=== PATIENT | male | born 1930 | race Caucasian/White ===

== ENCOUNTER 2018-06-07 10:38 | Emergency (ER) | payer MEDICARE, OTHER ==
[~2018-06-07] VITALS: Ht 185.4 cm; Wt 94.3 kg
[~2018-06-07 10:38] MED LIST: IMDUR30 MG PO; LISINOPRIL10 MG PO; LYRICA75 MG PO; METOPROLOL SUCC25 MG PO; PLAVIX75 MG PO
--- OUTSIDE RECORDS SUMMARY | 2018-06-07 10:41 | XMS REPORT | Clinical Summary ---
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 Name Role Phone George Stoner MD PCP Unavailable Allergies Comments Active Allergy Reactions Severity Noted Date Unknown reaction per patient but mentioned he was switched to a potassium sparing diuretic Bumetanide 11/22/2015 Could be the cause of his peripheral neuropathy Ciprofloxacin 11/22/2015 Fluocinolone Acetonide 04/18/2016 Wants to avoid because Cipro is suspected to be the cause of his peripheral neuropathy Levofloxacin 11/22/2015 Wants to avoid because Cipro is suspected to be the cause of his peripheral neuropathy Moxifloxacin 11/22/2015 Nystatin Rash, throat closed, chest pain Nystatin-Triamcinolone Other (See High 01/17/2016 Comments) Happened 60 years ago cannot remember reaction Penicillins 11/22/2015 Triamcinolone Medications End Date Status Medication Sig Dispensed Refills Start Date Active CYANOCOBALAMIN, VITAMIN Take 500 mcg 0 B-12, ORAL by mouth every evening. Active cholecalciferol, vitamin Take 1,000 0 D3, (VITAMIN D3) 1,000 Units by unit tablet mouth every evening. Active FOLIC Take 1 tablet 0 ACID/MULTIVIT-MIN/LUTEIN by mouth (CENTRUM SILVER ORAL) every evening. Active GLUCOSAMINE HCL/CHONDR RAINES Take 1 0 A NA (OSTEO BI-FLEX ORAL) capsule by mouth every evening. Active metoprolol succinate XL Take 12.5 mg 0 (TOPROL-XL) 25 mg 24 hr by mouth 2 tablet (two) times a day. Active aspirin (ECOTRIN) 81 MG Take 81 mg by 0 enteric coated tablet mouth every evening. Active clopidogrel (PLAVIX) 75 Take 37.5 mg 0 mg tablet by mouth daily. Active ASCORBATE Take 1 tablet 0 CALCIUM/BIOFLAVONOID by mouth (CHRISTIAN-C WITH every BIOFLAVONOIDS ORAL) evening. Active artificial Administer 1 0 tears,hypromellose, drop to both (SYSTANE GEL) 0.3 % gel eyes as needed (dry eyes). Active IMMUNE Infuse 55 0 GLOBULIN,GAMMA,IGG, Units into a (IMMUNE GLOBULIN, HUMAN,, venous IGG, IV) catheter every 28 days. Has appointments to start taking on April 15, , , "for legs" Active lisinopril Take 2.5 mg 0 (PRINIVIL,ZESTRIL) 2.5 mg by mouth tablet daily. Takes 1/2 tablet daily Active spironolactone Take 12.5 mg 0 (ALDACTONE) 25 MG tablet by mouth 2 (two) times a day. 07/16/2017 Discontinued spironolactone Take 12.5 mg 0 (ALDACTONE) 25 MG tablet by mouth daily. 07/16/2017 Discontinued lisinopril Take 1.25 mg 0 (PRINIVIL,ZESTRIL) 2.5 mg by mouth 2 tablet (two) times a day. 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 Encounters Care Team Description Date Type Specialty Regina Perez MD Chronic inflammatory demyelinating polyneuritis (HCC) (Primary Dx) 05/27/2018 Infusion Neurology Regina Perez MD Chronic inflammatory demyelinating polyneuritis (HCC) (Primary Dx) 04/29/2018 Infusion Neurology Ajay Miller MD Chronic inflammatory demyelinating polyneuritis (HCC) (Primary Dx) 04/01/2018 Infusion Neurology Maxine Thomas RN 03/11/2018 Telephone Neurology Regina Perez MD Chronic inflammatory demyelinating polyneuritis (Primary Dx) 03/04/2018 Infusion Neurology Regina Perez MD Chronic inflammatory demyelinating polyneuritis (Primary Dx) 02/04/2018 Infusion Neurology Regina Perez MD Chronic inflammatory demyelinating polyneuritis (Primary Dx) 01/07/2018 Infusion Neurology Regina Perez MD Chronic inflammatory demyelinating polyradiculoneuropathy (Primary Dx) 01/05/2018 Orders Only Neurology Regina Perez MD Chronic inflammatory demyelinating polyneuritis (Primary Dx); Chronic inflammatory demyelinating polyradiculoneuropathy 12/10/2017 Infusion Neurology Regina Perez MD Chronic inflammatory demyelinating polyradiculoneuropathy (Primary Dx); At high risk for falls 11/20/2017 Office Visit Neurology Regina Perez MD Chronic inflammatory demyelinating polyneuritis (Primary Dx); Chronic inflammatory demyelinating polyradiculoneuropathy 11/12/2017 Infusion Neurology Regina Perez MD Chronic inflammatory demyelinating polyneuritis (Primary Dx); Chronic inflammatory demyelinating polyradiculoneuropathy 10/15/2017 Infusion Neurology Regina Perez MD Chronic inflammatory demyelinating polyneuritis (Primary Dx) 09/17/2017 Infusion Neurology Regina Perez MD 09/04/2017 Telephone Neurology Regina Perez MD Chronic inflammatory demyelinating polyneuritis (Primary Dx) 08/20/2017 Infusion Neurology Regina Perez MD 08/15/2017 Telephone Neurology Regina Perez MD Canceled (Patient) 08/13/2017 Infusion Neurology Regina Perez MD Chronic inflammatory demyelinating polyneuritis (Primary Dx) 07/16/2017 Infusion Neurology Regina Perez MD Chronic inflammatory demyelinating polyneuritis (Primary Dx) 06/18/2017 Infusion Neurology after 06/06/2017 Immunizations Name Dates Previously Given Next Due Pneumococcal Conjugate 03/28/2017 13-Valent Family History Medical History Relation Name Comments Stroke Father Tuberculosis Mother Relation Name Status Comments Father Mother Social History Date Tobacco Use Types Packs/Day Years Used Quit: 195 Former Smoker Smokeless Tobacco: Never Used Alcohol Use Drinks/Week oz/Week Comments Yes very seldom Sex Assigned at Date Recorded Not on file Industry Job Start Date Occupation Not on file Not on file Not on file Travel End Travel History Travel Start No recent travel history available. Last Filed Vital Signs Time Taken Vital Sign Reading 05/27/2018 8:01 AM BELT PRESS OPERATOR Blood Pressure 125/66 05/27/2018 8:01 AM BELT PRESS OPERATOR Pulse 70 05/27/2018 8:01 AM BELT PRESS OPERATOR Temperature 36 C (96.8 F) 05/27/2018 8:01 AM BELT PRESS OPERATOR Respiratory Rate 18 05/27/2018 8:01 AM BELT PRESS OPERATOR Oxygen Saturation 99% - Inhaled Oxygen - Concentration 04/29/2018 7:17 AM BELT PRESS OPERATOR Weight 95.5 kg (210 lb 8 oz) 04/29/2018 7:17 AM BELT PRESS OPERATOR Height 188 cm (6' 2") 04/29/2018 7:17 AM BELT PRESS OPERATOR Body Mass Index 27.03 Plan of Treatment Care Team Description Date Type Specialty Regina Perez MD [address] [place] [address] [phone] 06/29/2018 Infusion Neurology 07/27/2018 Infusion Neurology Regina Perez MD [address] [place] [address] [phone] 08/11/2018 Office Visit Neurology 08/24/2018 Infusion Neurology Health Maintenance Due Date Last Done Comments SHINGLES VACCINES (1 of 1980 2) PNEUMOCOCCAL 1995 POLYSACCHARIDE VACCINE AGE 65 AND OVER INFLUENZA VACCINE 01/21/2018 PNEUMOCOCCAL-13 Completed 03/28/2017 Implants Device Identifier Shelf Expiration Date Model / Serial / Lot Implanted Type Area Manufactur er Pacemaker Defibrilator Procedures Comments Procedure Name Priority Date/Time Associated Diagnosis ESTIMATED GFR STAT 05/27/2018 7:53 AM BELT PRESS OPERATOR CREATININE LEVEL STAT 05/27/2018 Chronic inflammatory 7:53 AM BELT PRESS OPERATOR demyelinating polyneuritis (HCC) BUN LEVEL STAT 05/27/2018 Chronic inflammatory 7:53 AM BELT PRESS OPERATOR demyelinating polyneuritis (HCC) ESTIMATED GFR STAT 04/29/2018 7:34 AM BELT PRESS OPERATOR CREATININE LEVEL STAT 04/29/2018 Chronic inflammatory 7:34 AM BELT PRESS OPERATOR demyelinating polyneuritis (HCC) BUN LEVEL STAT 04/29/2018 Chronic inflammatory 7:34 AM BELT PRESS OPERATOR demyelinating polyneuritis (HCC) ESTIMATED GFR STAT 04/01/2018 8:08 AM CDT CREATININE LEVEL STAT 04/01/2018 Chronic inflammatory 8:08 AM CDT demyelinating polyneuritis (HCC) BUN LEVEL STAT 04/01/2018 Chronic inflammatory 8:08 AM CDT demyelinating polyneuritis (HCC) ESTIMATED GFR STAT 03/04/2018 7:54 AM CDT CREATININE LEVEL STAT 03/04/2018 Chronic inflammatory 7:54 AM CDT demyelinating polyneuritis BUN LEVEL STAT 03/04/2018 Chronic inflammatory 7:54 AM CDT demyelinating polyneuritis ZZESTIMATED GFR STAT 02/04/2018 8:20 AM CDT CREATININE LEVEL STAT 02/04/2018 Chronic inflammatory 8:20 AM CDT demyelinating polyneuritis BUN LEVEL STAT 02/04/2018 Chronic inflammatory 8:20 AM CDT demyelinating polyneuritis ZZESTIMATED GFR STAT 01/07/2018 7:32 AM CDT CREATININE LEVEL STAT 01/07/2018 Chronic inflammatory 7:32 AM CDT demyelinating polyneuritis BUN LEVEL STAT 01/07/2018 Chronic inflammatory 7:32 AM CDT demyelinating polyneuritis ZZESTIMATED GFR STAT 12/10/2017 7:56 AM CDT CREATININE LEVEL STAT 12/10/2017 Chronic inflammatory 7:56 AM CDT demyelinating polyneuritis Chronic inflammatory demyelinating polyradiculoneuropathy BUN LEVEL STAT 12/10/2017 Chronic inflammatory 7:56 AM CDT demyelinating polyneuritis Chronic inflammatory demyelinating polyradiculoneuropathy ZZESTIMATED GFR STAT 11/12/2017 7:31 AM CDT CREATININE LEVEL STAT 11/12/2017 Chronic inflammatory 7:31 AM CDT demyelinating polyneuritis Chronic inflammatory demyelinating polyradiculoneuropathy BUN LEVEL STAT 11/12/2017 Chronic inflammatory 7:31 AM CDT demyelinating polyneuritis Chronic inflammatory demyelinating polyradiculoneuropathy ZZESTIMATED GFR STAT 10/15/2017 8:07 AM CDT CREATININE LEVEL STAT 10/15/2017 Chronic inflammatory 8:07 AM CDT demyelinating polyneuritis Chronic inflammatory demyelinating polyradiculoneuropathy BUN LEVEL STAT 10/15/2017 Chronic inflammatory 8:07 AM CDT demyelinating polyneuritis Chronic inflammatory demyelinating polyradiculoneuropathy ZZESTIMATED GFR STAT 09/17/2017 8:30 AM CDT COMPREHENSIVE METABOLIC STAT 09/17/2017 Chronic inflammatory PANEL 8:30 AM CDT demyelinating polyneuritis ZZESTIMATED GFR STAT 08/20/2017 7:44 AM BELT PRESS OPERATOR CREATININE LEVEL STAT 08/20/2017 Chronic inflammatory 7:44 AM BELT PRESS OPERATOR demyelinating polyneuritis BUN LEVEL STAT 08/20/2017 Chronic inflammatory 7:44 AM BELT PRESS OPERATOR demyelinating polyneuritis ZZESTIMATED GFR STAT 07/16/2017 8:36 AM BELT PRESS OPERATOR CREATININE LEVEL STAT 07/16/2017 Chronic inflammatory 8:36 AM BELT PRESS OPERATOR demyelinating polyneuritis BUN LEVEL STAT 07/16/2017 Chronic inflammatory 8:36 AM BELT PRESS OPERATOR demyelinating polyneuritis ZZESTIMATED GFR STAT 06/18/2017 7:58 AM BELT PRESS OPERATOR CREATININE LEVEL STAT 06/18/2017 Chronic inflammatory 7:58 AM BELT PRESS OPERATOR demyelinating polyneuritis BUN LEVEL STAT 06/18/2017 Chronic inflammatory 7:58 AM BELT PRESS OPERATOR demyelinating polyneuritis after 06/06/2017 Results * Estimated GFR (05/27/2018 7:53 AM BELT PRESS OPERATOR) Only the most recent of 4 results within the time period is included. Estimated GFR 55 (A) mL/min/1.73 m2 [facility] Comment: HOSPITAL CatergoryUnitsInte rpretation G1 >=90 Normal or high G2 60-89Mildly decreased [id number] Mildly to moderately decreased [id number] Moderately to severely decreased G4 15-29Severely decreased G5 <15Kidney failure The eGFR was calculated using the Chronic Kidney Disease Epidemiology Collaboration (CKD-EPI) equation. Interpretation is based on recommendations of the National Kidney Foundation-Kidney Disease Outcomes Quality Initiative (NKF-KDOQI) published in 2014. Specimen Plasma specimen Performing Organization Address City/[facility] Phone Number [facility] [address] PATHOLOGY AND [facility] [address] MEDICINE [address] * BUN level (05/27/2018 7:53 AM BELT PRESS OPERATOR) Only the most recent of 12 results within the time period is included. BUN 20 8 - 23 mg/dL [facility] Specimen Plasma specimen Performing Organization Address [facility] [place] [address] PATHOLOGY [address] * Creatinine level (05/27/2018 7:53 AM BELT PRESS OPERATOR) Only the most recent of 12 results within the time period is included. Creatinine 1.18 0.70 - 1.20 mg/dL [facility] Specimen Plasma specimen Performing Organization Address [facility] [place] [address] PATHOLOGY AND GENOMIC MEDICINE [address] * Estimated GFR (02/04/2018 8:20 AM CDT) Only the most recent of 9 results within the time period is included. GFR Non Af Amer 52 (A) mL/min/1.73 m2 [facility] DEPARTMENT OF PATHOLOGY AND GENOMIC MEDICINE GFR Af Amer 63 mL/min/1.73 m2 [facility] DEPART[facility] OF Comment: PATHOLOGY AND Chronic kidney disease: <60 GENOMIC MEDICINE mL/min/1.73m2 Kidney failure: <15 mL/min/1.73m2 The estimated GFR is calculated from the IDMS-traceable Modification of Diet in Renal Disease Equation. The accuracy of the calculation is poor when the creatinine is normal. Calculated values >90 mL/min/1.73m2 are not reported. This equation has not been validated in children (<18 years), women, the elderly (>70 years), or ethnic groups other than Caucasians and Americans. Specimen Plasma specimen Performing Organization Address City/[facility] Phone Number [address] [place] [address] PATHOLOGY AND GENOMIC MEDICINE * Comprehensive metabolic panel (09/17/2017 8:30 AM CDT) Sodium 138 135 - 148 mEq/L [facility] DEPARTMENT OF PATHOLOGY AND GENOMIC MEDICINE Potassium 4.6 3.5 - 5.0 mEq/L [facility] DEPARTMENT OF PATHOLOGY AND GENOMIC MEDICINE Chloride 100 98 - 112 mEq/L [facility] DEPARTMENT OF PATHOLOGY AND GENOMIC MEDICINE CO2 23 (L) 24 - 31 mEq/L [facility] DEPARTMENT OF PATHOLOGY AND GENOMIC MEDICINE Anion gap 15 7 - 15 mEq/L [facility] DEPART[facility] OF Comment: PATHOLOGY AND Starting from September GENOMIC MEDICINE , anion gap calculation no longer incorporates potassium. Please note the change. BUN 26 (H) 8 - 23 mg/dL [facility] DEPARTMENT OF PATHOLOGY AND GENOMIC MEDICINE Creatinine 1.2 0.7 - 1.2 mg/dL [facility] DEPARTMENT OF PATHOLOGY AND GENOMIC MEDICINE Glucose 103 (H) 65 - 99 mg/dL [facility] DEPARTMENT OF PATHOLOGY AND GENOMIC MEDICINE Calcium 9.7 8.8 - 10.2 mg/dL [facility] DEPARTMENT OF PATHOLOGY AND GENOMIC MEDICINE Protein 7.5 6.3 - 8.3 g/dL [facility] DEPART[facility] OF Comment: PATHOLOGY AND GENOMIC MEDICINE 4.6-7.0 g/dL 1 week 4.4-7.6 g/dL 7 months-1year 5.1-7.3 g/dL 1-2 years5.6-7 .5 g/dL >3 years6.0-8 .0 g/dL 18-150 6.3-8.3 g/dL Albumin 3.9 3.5 - 5.0 g/dL [facility] DEPARTMENT OF PATHOLOGY AND GENOMIC MEDICINE A/G ratio 1.1 0.7 - 3.8 [facility] DEPARTMENT OF PATHOLOGY AND GENOMIC MEDICINE Alkaline phosphatase 37 (L) 40 - 129 U/L [facility] DEPARTMENT OF PATHOLOGY AND GENOMIC MEDICINE AST 34 10 - 50 U/L [facility] DEPARTMENT OF PATHOLOGY AND GENOMIC MEDICINE ALT 27 5 - 50 U/L [facility] DEPARTMENT OF PATHOLOGY AND GENOMIC MEDICINE Total bilirubin 0.8 0.0 - 1.2 mg/dL [facility] DEPARTMENT OF PATHOLOGY AND GENOMIC MEDICINE Specimen Plasma specimen Performing Organization Address City/State/Zipcode Phone Number [facility] [address] [place] [address] PATHOLOGY AND GENOMIC MEDICINE after 06/06/2017 Insurance Payer Benefit Subscriber ID Type Phone Address Plan / Group MEDICARE MEDICARE xxxxxxxxxx Medicare [place], [place] PART A AND B COMMERCIAL MISC MISC xxxxxxxxx Commercial COMMERCIAL Guarantor Name Account Relation to Date of Phone Billing Address Type Patient Erickson Coats Personal/F Self 1930 [address] [facility] [place] [address] Advance Directives Patient has advance care planning documents on file. For more information, everett delgado contact: Chato Alexis [address] [place] [address]
--- OUTSIDE RECORDS SUMMARY | 2018-06-07 10:42 | XMS REPORT | Summary of Care ---
Author Author [facility] Address Unknown Phone Unavailable Encounter [facility]) [id number] Date(s): 03/23/15 - 04/21/15 [facility] Discharge Disposition: Home Attending Physician: Georgina Gonzales MD Vital Signs No data available for this section Problem List Condition Effective Dates Status Health Status Informant Coronary artery Resolved disease(Confirmed) Hypertension(Confirm Resolved ed) Allergies, Adverse Reactions, Alerts Substance Reaction Severity Status Avelox Active Levaquin Active penicillins Active Medications No data available for this section Results No data available for this section Immunizations No data available for this section Procedures Procedure Date Related Diagnosis Body Site Stent placement Social History Social History Type Response Smoking Status Never smoker; Exposure to Tobacco Smoke None; Cigarette Smoking Last 365 Days No; Reg Smoking Cessation Counseling No Assessment and Plan No data available for this section
--- OUTSIDE RECORDS SUMMARY | 2018-06-07 10:42 | XMS REPORT | Summary of Care ---
Author Author [facility] Organization [facility] Address Unknown Phone Unavailable Encounter HQ Sadie(JOAO) [id number] Date(s): 04/21/16 - 04/22/16 [facility] [address] [place] [address]- Discharge Disposition: Home or Self Care Attending Physician: Yessica Boyd MD Admitting Physician: Yessica Boyd MD Vital Signs 1 2 3 Most recent to oldest [Reference Range]: 187.96 cm (04/22/16 3:07 AM) 187.96 cm (04/22/16 2:55 AM) Height 97.7 DegF (04/22/16 8:00 AM) 97.6 DegF (04/22/16 3:14 AM) 97.4 DegF (04/22/16 2:25 AM) Temperature Oral [96.4-99.1 DegF] 118/73 mmHg (04/22/16 8:00 AM) 137/71 mmHg (04/22/16 3:14 AM) 127/74 mmHg (04/22/16 2:25 AM) Blood Pressure [90-140/60-90 mmHg] 20 BRMIN (04/22/16 8:34 AM) 18 BRMIN (04/22/16 8:00 AM) 14 BRMIN (04/22/16 3:25 AM) Respiratory Rate [14-20 BRMIN] 86 bpm (04/22/16 8:00 AM) 64 bpm (04/22/16 3:14 AM) 80 bpm (04/21/16 10:53 PM) Peripheral Pulse Rate [60-100 bpm] 95.455 kg (04/22/16 3:07 AM) 95.455 kg (04/22/16 2:55 AM) 95.455 kg (04/21/16 10:53 PM) Weight 27.02 m2 (04/22/16 3:07 AM) 27.02 m2 (04/22/16 2:55 AM) Body Mass Index Problem List Condition Effective Dates Status Health Status Informant AICD (automatic Resolved cardioverter/defibri llator) present(Confirmed) 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 (Same as: Tylenol) Start Date: 04/22/16 Stop Date: 04/22/16 Status: Discontinued aspirin 324 mg, Route: PO, ONCE, Dosing Weight 95.455, kg, Priority: STAT, Start date: 1 23:14:00 CDT, Stop date: 04/21/16 23:14:00 CDT Start Date: 04/21/16 Stop Date: 04/22/16 Status: Completed aspirin 81 mg tablet, enteric coated 81 mg, 1 tab, Route: PO, Drug form: ECTAB, Bedtime, Dosing Weight 95.455, kg, St art date: 04/22/16 21:00:00 CDT, Duration: 30 day, Stop date: 05/21/16 21:00:00 YARN SPOOLER Notes: Do not crush or chew.(Same As: Ecotrin) Start Date: 04/22/16 Stop Date: 04/22/16 Status: Canceled cyanocobalamin 500 microgram, 1 tab, Route: PO, Drug form: TAB, Daily, Dosing Weight 95.455, kg , Start date: 04/22/16 9:00:00 CDT, Duration: 30 day, Stop date: 05/21/16 9:00:0 0 YARN SPOOLER Notes: (Same As: Vitamin B12) Start Date: 04/22/16 Stop Date: 04/22/16 Status: Discontinued docusate 100 mg, 1 cap, Route: PO, Drug form: CAP, BID, Dosing Weight 95.455, kg, PRN Con stipation, Start date: 04/22/16 2:53:00 CDT, Duration: 30 day, Stop date: 2:52:00 YARN SPOOLER Notes: (Same as: Colace) (Do Not Crush) Start Date: 04/22/16 Stop Date: 04/22/16 Status: Discontinued enoxaparin 40 mg, 0.4 mL, Route: SUB-Q, Drug form: INJ, [id number], Dosing Weight 95.455, kg, Start date: 04/22/16 9:00:00 CDT, Duration: 30 day, Stop date: 05/21/16 9:00:00 YARN SPOOLER Notes: (Same as: Lovenox) Start Date: 04/22/16 Stop Date: 04/22/16 Status: Discontinued Yuko-C 500 mg, Route: PO, Drug form: TAB, Daily, Dosing Weight 95.455, kg, Start date: 04/22/16 9:00:00 CDT, Duration: 30 day, Stop date: 05/21/16 9:00:00 YARN SPOOLER Start Date: 04/22/16 Stop Date: 04/22/16 Status: Discontinued morphine Sulfate 2 mg, 1 mL, Route: IVP, Drug form: INJ, Q4H, Dosing Weight 95.455, kg, PRN Pain Score 7-10, Start date: 04/22/16 2:53:00 CDT, Duration: 30 day, Stop date: 05/22 2:52:00 YARN SPOOLER Notes: (Same as:MORPhine Sulfate) Start Date: 04/22/16 Stop Date: 04/22/16 Status: Discontinued ondansetron 4 mg, 2 mL, Route: IVP, Drug form: INJ, Q6H, Dosing Weight 95.455, kg, PRN Nause a & Vomiting, Start date: 04/22/16 2:53:00 CDT, Duration: 30 day, Stop date: 05/22/16 2:52:00 YARN SPOOLER Notes: (Same as: Sissy) MEDICATION WASTE Product Size: 4 mgProduct Was t[place]: ___ mg Start Date: 04/22/16 Stop Date: 04/22/16 Status: Discontinued Osteo Bi-Flex Daily, bedtime, 0 Refill(s) Start Date: 04/22/16 Status: Ordered Plavix 37.5 mg, 0.5 tab, Route: PO, Drug form: TAB, Daily, Dosing Weight 95.455, kg, St art date: 04/22/16 9:00:00 CDT, Duration: 30 day, Stop date: 05/21/16 9:00:00 CS T Notes: (Same As: Plavix) Start Date: 04/22/16 Stop Date: 04/22/16 Status: Discontinued Saline Flush 0.9% 10 mL, Route: IVP, Drug Form: INJ, Dosing Weight 95.455, kg, PRN, PRN Line Flush , Start date: 04/21/16 23:14:00 CDT, Duration: 30 day, Stop date: 05/21/16 22:13 :00 YARN SPOOLER Notes: (Same as: BD Posiflush) Start Date: 04/21/16 Stop Date: 04/22/16 Status: Discontinued Saline Flush 0.9% 10 mL, Route: IVP, Drug Form: INJ, Dosing Weight 95.455, kg, PRN, PRN Line Flush , Start date: 04/21/16 23:38:00 CDT, Duration: 30 day, Stop date: 05/21/16 22:37 :00 YARN SPOOLER Notes: (Same as: BD Posiflush) Start Date: 04/21/16 Stop Date: 04/22/16 Status: Discontinued spironolactone 25 mg, 1 tab, Route: PO, Drug form: TAB, Daily, Dosing Weight 95.455, kg, Start date: 04/22/16 9:00:00 CDT, Duration: 30 day, Stop date: 05/21/16 9:00:00 YARN SPOOLER Notes: (Same As: Aldactone) Start Date: 04/22/16 Stop Date: 04/22/16 Status: Discontinued Toprol-XL 25 mg oral tablet, extended release 25 mg, 1 tab, Route: PO, Drug form: ERTAB, Daily, Start date: 04/22/16 9:00:00 C DT, Duration: 30 day, Stop date: 05/21/16 9:00:00 YARN SPOOLER Notes: (Same as: Toprol XL) Do Not Crush Start Date: 04/22/16 Stop Date: 04/22/16 Status: Discontinued Vitamin D3 1000 intl units oral tablet 1,000 IntlUnit, 1 tab, Route: PO, Drug form: TAB, Daily, Dosing Weight 95.455, k g, Start date: 04/22/16 9:00:00 CDT, Duration: 30 day, Stop date: 05/21/16 9:00: 00 YARN SPOOLER Notes: Same as : Vitamin D3 Start Date: 04/22/16 Stop Date: 04/22/16 Status: Discontinued Zocor 10 mg, 1 tab, Route: PO, Drug form: TAB, Bedtime, Dosing Weight 95.455, kg, Star t date: 04/22/16 21:00:00 CDT, Duration: 30 day, Stop date: 05/21/16 21:00:00 CS T Notes: (Same as: Zocor) Start Date: 04/22/16 Stop Date: 04/22/16 Status: Canceled Results ELECTROLYTES 1 2 3 Most recent to oldest [Reference Range]: 136 mEq/L (04/22/16 12:12 AM) Sodium Lvl [135-145 mEq/L] 4.4 mEq/L (04/22/16 12:12 AM) Potassium Lvl [3.5-5.1 mEq/L] 103 mEq/L (04/22/16 12:12 AM) Chloride Lvl [95-109 mEq/L] 23 mEq/L *LOW* (04/22/16 12:12 AM) CO2 [24-32 mEq/L] 14.4 mEq/L (04/22/16 12:12 AM) AGAP [10.0-20.0 mEq/L] CHEM PANEL 1 2 3 Most recent to oldest [Reference Range]: 1.30 mg/dL (04/22/16 10:50 AM) 1.40 mg/dL (04/22/16 12:12 AM) Creatinine Lvl [0.50-1.40 mg/dL] 49 mL/min/1.73m2 1 *NA* (04/22/16 10:50 AM) 45 mL/min/1.73m2 2 *NA* (04/22/16 12:12 AM) eGFR 29 mg/dL *HI* (04/22/16 12:12 AM) BUN [7-22 mg/dL] 21 (04/22/16 12:12 AM) B/C Ratio [6-25] 100 mg/dL *HI* (04/22/16 12:12 AM) Glucose Lvl [70-99 mg/dL] 8.4 g/dL (04/22/16 12:12 AM) Total Protein [6.4-8.4 g/dL] 3.9 g/dL (04/22/16 12:12 AM) Albumin Lvl [3.5-5.0 g/dL] 4.5 g/dL *HI* (04/22/16 12:12 AM) Globulin [2.7-4.2 g/dL] 0.9 (04/22/16 12:12 AM) A/G Ratio [0.7-1.6] 9.0 mg/dL (04/22/16 12:12 AM) Calcium Lvl [8.5-10.5 mg/dL] 39 unit/L (04/22/16 12:12 AM) ALT [0-65 unit/L] 34 unit/L (04/22/16 12:12 AM) AST [0-37 unit/L] 46 unit/L (04/22/16 12:12 AM) Alk Phos [39-136 unit/L] 0.5 mg/dL (04/22/16 12:12 AM) Bili Total [0.2-1.3 mg/dL] 1Result Comment: The eGFR is calculated using the CKD-EPI formula. In most young, healthy individuals the eGFR will be >90 mL/min/1.73m2. The eGFR declines with age. An eGFR of 60-89 may be normal in some populations, particularly the elderly, for whom the CKD-EPI formula has not been extensively validated. Use of the eGFR is not recommended in the following populations: Individuals with unstable creatinine concentrations, including patients and those with serious co-morbid conditions. Patients with extremes in muscle mass or diet. The data above are obtained from the National Kidney Disease Education Program ( NKDEP) which additionally recommends that when the eGFR is used in patients with extremes of body mass index for purposes of drug dosing, the eGFR should be mul tiplied by the estimated BMI. 2Result Comment: The eGFR is calculated using the CKD-EPI formula. In most young, healthy individuals the eGFR will be >90 mL/min/1.73m2. The eGFR declines with age. An eGFR of 60-89 may be normal in some populations, particularly the elderly, for whom the CKD-EPI formula has not been extensively validated. Use of the eGFR is not recommended in the following populations: Individuals with unstable creatinine concentrations, including patients and those with serious co-morbid conditions. Patients with extremes in muscle mass or diet. The data above are obtained from the National Kidney Disease Education Program ( NKDEP) which additionally recommends that when the eGFR is used in patients with extremes of body mass index for purposes of drug dosing, the eGFR should be mul tiplied by the estimated BMI. CARDIAC ENZYMES 1 2 3 Most recent to oldest [Reference Range]: 105 unit/L (04/22/16 12:12 AM) Total CK [12-191 unit/L] 4.3 ng/mL *HI* (04/22/16 12:12 AM) CK MB [0.5-3.6 ng/mL] 4.1 *HI* (04/22/16 12:12 AM) CK MB Index [0.0-2.5] 0.09 ng/mL (04/22/16 10:50 AM) 0.10 ng/mL (04/22/16 5:18 AM) 0.09 ng/mL (04/22/16 12:12 AM) Troponin-I [0.00-0.40 ng/mL] 339 pg/mL *HI* (04/22/16 12:12 AM) BNP [<=100 pg/mL] HEMATOLOGY 1 2 3 Most recent to oldest [Reference Range]: 5.6 K/CMM (04/22/16 12:12 AM) WBC [3.7-10.4 K/CMM] 5.16 M/CMM (04/22/16 12:12 AM) RBC [4.70-6.10 M/CMM] 15.3 g/dL (04/22/16 12:12 AM) Hgb [14.0-18.0 g/dL] 46.2 % (04/22/16 12:12 AM) Hct [42.0-54.0 %] 89.4 fL (04/22/16 12:12 AM) MCV [80.0-94.0 fL] 29.7 pg (04/22/16 12:12 AM) MCH [27.0-31.0 pg] 33.2 g/dL (04/22/16 12:12 AM) MCHC [32.0-36.0 g/dL] 12.9 % (04/22/16 12:12 AM) RDW [11.5-14.5 %] 126 K/CMM *LOW* (04/22/16 10:50 AM) 135 K/CMM (04/22/16 12:12 AM) Platelet [133-450 K/CMM] 11.0 fL *HI* (04/22/16 12:12 AM) MPV [7.4-10.4 fL] 60.7 % (04/22/16 12:12 AM) Segs [45.0-75.0 %] 26.8 % (04/22/16 12:12 AM) Lymphocytes [20.0-40.0 %] 8.3 % (04/22/16 12:12 AM) Monocytes [2.0-12.0 %] 2.3 % (04/22/16 12:12 AM) Eosinophils [0.0-4.0 %] 1.9 % *HI* (04/22/16 12:12 AM) Basophils [0.0-1.0 %] 3.4 K/CMM (04/22/16 12:12 AM) Segs-Bands # [1.5-8.1 K/CMM] 1.5 K/CMM (04/22/16 12:12 AM) Lymphocytes # [1.0-5.5 K/CMM] 0.5 K/CMM (04/22/16 12:12 AM) Monocytes # [0.0-0.8 K/CMM] 0.1 K/CMM (04/22/16 12:12 AM) Eosinophils # [0.0-0.5 K/CMM] 0.1 K/CMM (04/22/16 12:12 AM) Basophils # [0.0-0.2 K/CMM] 14.1 seconds (04/22/16 12:12 AM) PT [12.0-14.7 seconds] 1.07 (04/22/16 12:12 AM) INR [0.85-1.17] 28.8 seconds (04/22/16 12:12 AM) PTT [22.9-35.8 seconds] Immunizations No data available for this section Procedures Procedure Date Related Diagnosis Body Site Automatic defibrillator procedure 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 Alcohol Current, Type Wine. Frequency: 1-2 times per year. Smoking Status Former smoker; Exposure to Tobacco Smoke None; Cigarette Smoking Last 365 Days No; Reg Smoking Cessation Counseling No Assessment and Plan No data available for this section
--- OUTSIDE RECORDS SUMMARY | 2018-06-07 10:42 | XMS REPORT | Summary of Care ---
Author Author [facility] Organization [facility] Address Unknown Phone Unavailable Encounter HQ Sadie(JOAO) [id number] Date(s): 04/18/16 - 04/19/16 [facility] [address] [place] [address]- [phone] Discharge Disposition: Home or Self Care Attending Physician: Yessica Boyd MD Admitting Physician: Yessica Boyd MD Vital Signs 1 2 3 Most recent to oldest [Reference Range]: 187.96 cm (04/18/16 11:57 PM) 187.96 cm (04/18/16 6:28 PM) Height 98.1 DegF (04/19/16 3:17 PM) 97.5 DegF (04/19/16 11:26 AM) 98.5 DegF (04/19/16 8:22 AM) Temperature Oral [96.4-99.1 DegF] 108/65 mmHg (04/19/16 3:17 PM) 119/67 mmHg (04/19/16 11:26 AM) 132/74 mmHg (04/19/16 8:22 AM) Blood Pressure [90-140/60-90 mmHg] 16 BRMIN (04/19/16 11:26 AM) 15 BRMIN (04/19/16 8:22 AM) 16 BRMIN (04/19/16 3:40 AM) Respiratory Rate [14-20 BRMIN] 65 bpm (04/19/16 3:17 PM) 69 bpm (04/19/16 11:26 AM) 71 bpm (04/19/16 8:22 AM) Peripheral Pulse Rate [60-100 bpm] 95.455 kg (04/18/16 6:28 PM) Weight 27.02 m2 (04/18/16 6:28 PM) Body Mass Index Problem List Condition Effective Dates Status Health Status Informant AICD (automatic Resolved cardioverter/defibri llator) present(Confirmed) 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 (Same as: Tylenol) Start Date: 04/18/16 Stop Date: 04/19/16 Status: Discontinued aspirin 324 mg, 4 tab, Route: CHEW, Drug form: CHEWTAB, ONCE, Dosing Weight 95.455, kg, Priority: STAT, Start date: 04/18/16 21:12:00 CDT, Stop date: 04/18/16 21:12:00 CDT Notes: Take with food. Start Date: 04/18/16 Stop Date: 04/18/16 Status: Completed aspirin 81 mg tablet, enteric coated 81 mg, 1 tab, Route: PO, Drug form: ECTAB, Bedtime, Dosing Weight 95.455, kg, St art date: 04/19/16 21:00:00 CDT, Duration: 30 day, Stop date: 05/18/16 21:00:00 CARB[employer] P[employer]ER [employer]ATING SUPERVISOR Notes: Do not crush or chew.(Same As: Ecotrin) Start Date: 04/19/16 Stop Date: 04/19/16 Status: Canceled aspirin 81 mg tablet, enteric coated 81 mg=1 tab, PO, Bedtime, 0 Refill(s) Start Date: 04/18/16 Status: Ordered atropine 0.5 mg, 5 mL, Route: IVP, Drug form: INJ, PRN, PRN Bradycardia, Start date: 03/24 02/05 0:09:00 CDT, Duration: 30 day, Stop date: 05/18/16 23:08:00 CARB[employer] P[employer] SUPERVISOR Start Date: 04/19/16 Stop Date: 04/19/16 Status: Discontinued docusate 100 mg, 1 cap, Route: PO, Drug form: CAP, BID, Dosing Weight 95.455, kg, PRN Con stipation, Start date: 04/18/16 22:13:00 CDT, Duration: 30 day, Stop date: 05/18 22:12:00 CARB[employer] P[employer]ATING SUPERVISOR Notes: (Same as: Colace) (Do Not Crush) Start Date: 04/18/16 Stop Date: 04/19/16 Status: Discontinued morphine Sulfate 2 mg, 1 mL, Route: IVP, Drug form: INJ, Q4H, Dosing Weight 95.455, kg, PRN Pain Score 7-10, Start date: 04/18/16 22:13:00 CDT, Duration: 30 day, Stop date: 04/24 12/06 22:12:00 CARB[employer] P[employer]ATING SUPERVISOR Notes: (Same as:MORPhine Sulfate) Start Date: 04/18/16 Stop Date: 04/19/16 Status: Discontinued nitroglycerin 0.4 mg sublingual tablet 0.4 mg, 1 tab, Route: SL, Drug form: TAB, Q5Min, PRN Chest Pain, Start date: 0:09:00 CDT, Duration: 30 day, Stop date: 05/18/16 23:08:00 [employer] P[employer] SUPERVISOR Notes: (Same as:Nitroquick, Nitrostat)"Do Not Crush" Sublingual tablet Start Date: 04/19/16 Stop Date: 04/19/16 Status: Discontinued ondansetron 4 mg, 2 mL, Route: IVP, Drug form: INJ, Q6H, Dosing Weight 95.455, kg, PRN Nause a & Vomiting, Start date: 04/18/16 22:13:00 CDT, Duration: 30 day, Stop date: 05/18/16 22:12:00 CARB[employer] P[employer]ATING SUPERVISOR Notes: (Same as: Sissy) MEDICATION WASTE Product Size: 4 mgProduct Was troy: ___ mg Start Date: 04/18/16 Stop Date: 04/19/16 Status: Discontinued Plavix 37.5 mg, 0.5 tab, Route: PO, Drug form: TAB, Daily, Dosing Weight 95.455, kg, St art date: 04/19/16 9:00:00 CDT, Duration: 30 day, Stop date: 05/18/16 9:00:00 CS T Notes: (Same As: Plavix) Start Date: 04/19/16 Stop Date: 04/19/16 Status: Discontinued Saline Flush 0.9% 10 mL, Route: IVP, Drug Form: INJ, Dosing Weight 95.455, kg, PRN, PRN Line Flush , Start date: 04/18/16 18:46:00 CDT, Duration: 30 day, Stop date: 05/18/16 17:45 :00 CARB[employer] P[employer] SUPERVISOR Notes: (Same as: BD Posiflush) Start Date: 04/18/16 Stop Date: 04/18/16 Status: Discontinued spironolactone 25 mg, 1 tab, Route: PO, Drug form: TAB, Daily, Dosing Weight 95.455, kg, Start date: 04/19/16 9:00:00 CDT, Duration: 30 day, Stop date: 05/18/16 9:00:00 CARB[employer] P[employer] SUPERVISOR Notes: (Same As: Aldactone) Start Date: 04/19/16 Stop Date: 04/19/16 Status: Discontinued Toprol-XL 25 mg oral tablet, extended release 25 mg, 1 tab, Route: PO, Drug form: ERTAB, Daily, Start date: 04/19/16 9:00:00 C DT, Duration: 30 day, Stop date: 05/18/16 9:00:00 CARB[employer] P[employer] SUPERVISOR Notes: (Same as: Toprol XL) Do Not Crush Start Date: 04/19/16 Stop Date: 04/19/16 Status: Discontinued Vitamin D3 1000 intl units oral tablet 1,000 IntlUnit, 1 tab, Route: PO, Drug form: TAB, Daily, Dosing Weight 95.455, k g, Start date: 04/19/16 9:00:00 CDT, Duration: 30 day, Stop date: 05/18/16 9:00: 00 [employer] SUPERVISOR Notes: Same as : Vitamin D3 Start Date: 04/19/16 Stop Date: 04/19/16 Status: Discontinued Zocor 10 mg oral tablet 10 mg=1 tab, PO, Bedtime, # 30 tab, 0 Refill(s), Pharmacy: [phone] Start Date: 04/19/16 Stop Date: 05/19/16 Status: Ordered Results ELECTROLYTES 1 2 3 Most recent to oldest [Reference Range]: 138 mEq/L (04/19/16 4:40 AM) 137 mEq/L (04/18/16 7:03 PM) Sodium Lvl [135-145 mEq/L] 3.8 mEq/L (04/19/16 4:40 AM) 4.4 mEq/L (04/18/16 7:03 PM) Potassium Lvl [3.5-5.1 mEq/L] 105 mEq/L (04/19/16 4:40 AM) 103 mEq/L (04/18/16 7:03 PM) Chloride Lvl [95-109 mEq/L] 25 mEq/L (04/19/16 4:40 AM) 26 mEq/L (04/18/16 7:03 PM) CO2 [24-32 mEq/L] 11.8 mEq/L (04/19/16 4:40 AM) 12.4 mEq/L (04/18/16 7:03 PM) AGAP [10.0-20.0 mEq/L] CHEM PANEL 1 2 3 Most recent to oldest [Reference Range]: 1.20 mg/dL (04/19/16 4:40 AM) 1.40 mg/dL (04/18/16 7:03 PM) Creatinine Lvl [0.50-1.40 mg/dL] 54 mL/min/1.73m2 1 *NA* (04/19/16 4:40 AM) 45 mL/min/1.73m2 2 *NA* (04/18/16 7:03 PM) eGFR 22 mg/dL (04/19/16 4:40 AM) 22 mg/dL (04/18/16 7:03 PM) BUN [7-22 mg/dL] 18 (04/19/16 4:40 AM) 16 (04/18/16 7:03 PM) B/C Ratio [6-25] 86 mg/dL (04/19/16 4:40 AM) 91 mg/dL (04/18/16 7:03 PM) Glucose Lvl [70-99 mg/dL] 7.3 g/dL (04/19/16 4:40 AM) 8.6 g/dL *HI* (04/18/16 7:03 PM) Total Protein [6.4-8.4 g/dL] 3.3 g/dL *LOW* (04/19/16 4:40 AM) 4.0 g/dL (04/18/16 7:03 PM) Albumin Lvl [3.5-5.0 g/dL] 4.0 g/dL (04/19/16 4:40 AM) 4.6 g/dL *HI* (04/18/16 7:03 PM) Globulin [2.7-4.2 g/dL] 0.8 (04/19/16 4:40 AM) 0.9 (04/18/16 7:03 PM) A/G Ratio [0.7-1.6] 8.4 mg/dL *LOW* (04/19/16 4:40 AM) 8.8 mg/dL (04/18/16 7:03 PM) Calcium Lvl [8.5-10.5 mg/dL] 3.9 mg/dL (04/19/16 4:40 AM) Phosphorus [2.5-4.5 mg/dL] 2.1 mg/dL (04/19/16 4:40 AM) 2.1 mg/dL (04/18/16 7:03 PM) Magnesium Lvl [1.8-2.4 mg/dL] 35 unit/L (04/19/16 4:40 AM) 41 unit/L (04/18/16 7:03 PM) ALT [0-65 unit/L] 32 unit/L (04/19/16 4:40 AM) 32 unit/L (04/18/16 7:03 PM) AST [0-37 unit/L] 38 unit/L *LOW* (04/19/16 4:40 AM) 47 unit/L (04/18/16 7:03 PM) Alk Phos [39-136 unit/L] 0.9 mg/dL (04/19/16 4:40 AM) 0.7 mg/dL (04/18/16 7:03 PM) Bili Total [0.2-1.3 mg/dL] 1Result Comment: The [...] 3 Most recent to oldest [Reference Range]: 122 unit/L (04/19/16 4:40 AM) 115 unit/L (04/19/16 12:03 AM) 146 unit/L (04/18/16 7:03 PM) Total CK [12-191 unit/L] 5.7 ng/mL *HI* (04/19/16 4:40 AM) 5.3 ng/mL *HI* (04/19/16 12:03 AM) 6.7 ng/mL *HI* (04/18/16 7:03 PM) CK MB [0.5-3.6 ng/mL] 4.7 *HI* (04/19/16 4:40 AM) 4.6 *HI* (04/19/16 12:03 AM) 4.6 *HI* (04/18/16 7:03 PM) CK MB Index [0.0-2.5] 0.10 ng/mL (04/19/16 4:40 AM) 0.11 ng/mL (04/19/16 12:03 AM) 0.08 ng/mL (04/18/16 7:03 PM) Troponin-I [0.00-0.40 ng/mL] 479 pg/mL *HI* (04/18/16 7:03 PM) BNP [<=100 pg/mL] LIPIDS 1 2 3 Most recent to oldest [Reference Range]: 4.84 (04/19/16 4:40 AM) CHD Risk [4.00-7.30] 155 mg/dL (04/19/16 4:40 AM) Chol [<=199 mg/dL] 131 mg/dL (04/19/16 4:40 AM) Trig [<=149 mg/dL] 32 mg/dL *LOW* (04/19/16 4:40 AM) HDL [>=61 mg/dL] 97 mg/dL (04/19/16 4:40 AM) LDL (Calculated) [<=99 mg/dL] 26 *NA* (04/19/16 4:40 AM) VLDL URINE AND STOOL 1 2 3 Most recent to oldest [Reference Range]: Clear (04/18/16 9:53 PM) UA Turbidity [Clear] Ltyellow *NA* (04/18/16 9:53 PM) UA Color 5.0 (04/18/16 9:53 PM) UA pH [5.0-8.0] 1.019 (04/18/16 9:53 PM) UA Spec Grav [<=1.030] Negative mg/dL *NA* (04/18/16 9:53 PM) UA Glucose [Negative mg/dL] Negative (04/18/16 9:53 PM) UA Blood [Negative] 20 mg/dL *ABN* (04/18/16 9:53 PM) UA Ketones [Negative mg/dL] Negative mg/dL (04/18/16 9:53 PM) UA Protein [Negative mg/dL] <=1.0 mg/dL *NA* (04/18/16 9:53 PM) UA Urobilinogen [0.1-1.0 mg/dL] Negative *NA* (04/18/16 9:53 PM) UA Bili [Negative] Negative (04/18/16 9:53 PM) UA Leuk Est [Negative] Negative (04/18/16 9:53 PM) UA Nitrite [Negative] <1 /HPF (04/18/16 9:53 PM) UA WBC [0-5 /HPF] 2 /HPF (04/18/16 9:53 PM) UA RBC [0-2 /HPF] Occasional /LPF *NA* (04/18/16 9:53 PM) UA Sq Epi [Few /LPF] Few /LPF *NA* (04/18/16 9:53 PM) UA Mucus [None Seen /LPF] HEMATOLOGY 1 2 3 Most recent to oldest [Reference Range]: 3.6 K/CMM *LOW* (04/19/16 4:40 AM) 4.6 K/CMM (04/18/16 7:03 PM) WBC [3.7-10.4 K/CMM] 4.62 M/CMM *LOW* (04/19/16 4:40 AM) 5.03 M/CMM (04/18/16 7:03 PM) RBC [4.70-6.10 M/CMM] 14.0 g/dL (04/19/16 4:40 AM) 14.8 g/dL (04/18/16 7:03 PM) Hgb [14.0-18.0 g/dL] 41.1 % *LOW* (04/19/16 4:40 AM) 44.9 % (04/18/16 7:03 PM) Hct [42.0-54.0 %] 89.0 fL (04/19/16 4:40 AM) 89.3 fL (04/18/16 7:03 PM) MCV [80.0-94.0 fL] 30.4 pg (04/19/16 4:40 AM) 29.4 pg (04/18/16 7:03 PM) MCH [27.0-31.0 pg] 34.1 g/dL (04/19/16 4:40 AM) 32.9 g/dL (04/18/16 7:03 PM) MCHC [32.0-36.0 g/dL] 12.9 % (04/19/16 4:40 AM) 12.9 % (04/18/16 7:03 PM) RDW [11.5-14.5 %] 99 K/CMM *LOW* (04/19/16 4:40 AM) 131 K/CMM *LOW* (04/18/16 7:03 PM) Platelet [133-450 K/CMM] 9.5 fL (04/19/16 4:40 AM) 9.8 fL (04/18/16 7:03 PM) MPV [7.4-10.4 fL] 36.0 % *LOW* (04/19/16 4:40 AM) 54.0 % (04/18/16 7:03 PM) Segs [45.0-75.0 %] 43.0 % *HI* (04/19/16 4:40 AM) 27.7 % (04/18/16 7:03 PM) Lymphocytes [20.0-40.0 %] 17.2 % *HI* (04/19/16 4:40 AM) 16.1 % *HI* (04/18/16 7:03 PM) Monocytes [2.0-12.0 %] 2.7 % (04/19/16 4:40 AM) 1.6 % (04/18/16 7:03 PM) Eosinophils [0.0-4.0 %] 1.1 % *HI* (04/19/16 4:40 AM) 0.6 % (04/18/16 7:03 PM) Basophils [0.0-1.0 %] 1.3 K/CMM *LOW* (04/19/16 4:40 AM) 2.5 K/CMM (04/18/16 7:03 PM) Segs-Bands # [1.5-8.1 K/CMM] 1.6 K/CMM (04/19/16 4:40 AM) 1.3 K/CMM (04/18/16 7:03 PM) Lymphocytes # [1.0-5.5 K/CMM] 0.6 K/CMM (04/19/16 4:40 AM) 0.7 K/CMM (04/18/16 7:03 PM) Monocytes # [0.0-0.8 K/CMM] 0.1 K/CMM (04/19/16 4:40 AM) 0.1 K/CMM (04/18/16 7:03 PM) Eosinophils # [0.0-0.5 K/CMM] Normal (04/19/16 4:40 AM) Normal (04/18/16 7:03 PM) RBC Morph Normal (04/19/16 4:40 AM) Normal (04/18/16 7:03 PM) Plt Morph 13.6 seconds (04/18/16 7:03 PM) PT [12.0-14.7 seconds] 1.02 (04/18/16 7:03 PM) INR [0.85-1.17] 30.9 seconds (04/18/16 7:03 PM) PTT [22.9-35.8 seconds] Immunizations No data available [...]
--- OUTSIDE RECORDS SUMMARY | 2018-06-07 10:42 | XMS REPORT | Summary of Care ---
Author Author [facility] Address Unknown Phone Unavailable Encounter [facility]) [id number] Date(s): 04/24/15 - 05/23/15 [facility] Discharge Disposition: Home Attending Physician: Georgina Gonzales [...]
--- OUTSIDE RECORDS SUMMARY | 2018-06-07 10:42 | XMS REPORT | Summary of Care ---
Author Organization Unknown Address Unknown Phone Unavailable Encounter [facility] Sadie(JOAO) [id number] Date(s): 04/11/14 - 04/11/[address] Discharge Disposition: Home Physician Attending: Steve Diana MD Physician Admitting: Steve Diana MD Physician_Referring: Steve Diana MD Reason for Visit CAD Vital Signs 1 2 3 Most recent to oldest [Reference Range]: 187.96 cm (04/11/14 11:12 AM) Height 97.8 DegF (04/11/14 12:39 PM) Temperature Oral [96.4-99.1 DegF] 122 mmHg (04/11/14 7:00 PM) 122 mmHg (04/11/14 6:45 PM) 120 mmHg (04/11/14 6:30 PM) Systolic Blood Pressure [90-140 mmHg] 60 mmHg (04/11/14 7:00 PM) 60 mmHg (04/11/14 6:45 PM) 58 mmHg *LOW* (04/11/14 6:30 PM) Diastolic Blood Pressure [60-90 mmHg] 98.636 kg (04/11/14 11:12 AM) Weight 27.92 m2 (04/11/14 11:12 AM) Body Mass Index Problem List Condition Effective Dates Status Health Status Informant Coronary artery Resolved disease(Confirmed) Hypertension(Confirm Resolved ed) Allergies, Adverse Reactions, Alerts Substance Reaction Severity Status Avelox Active Levaquin Active penicillins Active Medications Aspirin Low Dose 81 mg oral tablet 0 Refill(s) Start Date: 04/11/14 Status: Ordered Centrum Silver oral tablet 1 tab, PO, Daily, # 30 tab, 0 Refill(s) Start Date: 04/11/14 Status: Ordered Yuko-C 500 mg oral tablet =1 tab, PO, Daily, # 60 tab, 0 Refill(s) Start Date: 04/11/14 Status: Ordered Imdur 30 mg oral tablet, extended release 30 mg=1 tab, PO, QAM, # 30 tab, 0 Refill(s) Start Date: 04/11/14 Status: Ordered lisinopril 2.5 mg oral tablet 2.5 mg=1 tab, PO, Daily, # 30 tab, 0 Refill(s) Start Date: 04/11/14 Status: Ordered Lyrica 75 mg oral capsule 75 mg=1 cap, PO, TID, # 90 cap, 0 Refill(s) Start Date: 04/11/14 Status: Ordered metoprolol 25 mg oral tablet, extended release 25 mg, PO, Daily, # 30 tab, 0 Refill(s) Start Date: 04/11/14 Stop Date: 05/11/14 Status: Ordered nitroglycerin SL Tab 0.4 mg, 1 tab, Route: SL, Drug form: TAB, Q5Min, Dosing Weight 98.636, kg, PRN C hest Pain, Start date: 04/11/14 14:41:00, Duration: 3 doses or times, Stop date: 04/11/14 17:00:00 Notes: (Same as:Nitroquick, Nitrostat)"Do Not Crush" Sublingual tablet Start Date: 04/11/14 Stop Date: 04/11/14 Status: Completed Plavix 75 mg oral tablet 75 mg=1 tab, PO, Daily, # 30 tab, 0 Refill(s) Start Date: 04/11/14 Status: Ordered Saline Flush 0.9% 10 ml, Route: IVP, Drug Form: INJ, Dosing Weight 98.636, kg, Q12H, Start date: 1 21:00:00, Duration: 30 day, Stop date: 05/11/14 9:00:00 Notes: (Same as: BD Posiflush) Start Date: 04/11/14 Stop Date: 04/12/14 Status: Discontinued Saline Flush 0.9% 10 ml, Route: IVP, Drug Form: INJ, Dosing Weight 98.636, kg, PRN, PRN Line Flush , Start date: 04/11/14 11:58:00, Duration: 30 day, Stop date: 05/11/14 10:57:00 Notes: (Same as: BD Posiflush) Start Date: 04/11/14 Stop Date: 04/11/14 Status: Discontinued Saline Flush 0.9% 10 ml, Route: IVP, Drug Form: INJ, Dosing Weight 98.636, kg, Q12H, Start date: 1 21:00:00, Duration: 30 day, Stop date: 05/11/14 9:00:00 Notes: (Same as: BD Posiflush) Start Date: 04/11/14 Stop Date: 04/11/14 Status: Discontinued Saline Flush 0.9% 10 ml, Route: IVP, Drug Form: INJ, Dosing Weight 98.636, kg, PRN, PRN Line Flush , Start date: 04/11/14 14:41:00, Duration: 30 day, Stop date: 05/11/14 13:40:00 Notes: (Same as: BD Posiflush) Start Date: 04/11/14 Stop Date: 04/12/14 Status: Discontinued Sodium Chloride 0.9% (Bolus) IV 250 mL, 250 ml/hr, Infuse Over: 1 hr, Route: IV, 250, Drug form: INJ, ONCE, Prio rity: Routine, Dosing Weight 98.636 kg, Start date: 04/11/14 11:58:00, Duration: 1 doses or times, Stop date: 04/11/14 11:58:00 Start Date: 04/11/14 Stop Date: 04/11/14 Status: Completed Sodium Chloride 0.9% IV 750 mL 750 mL, Rate: 75 ml/hr, Infuse over: 10 hr, Route: IV, Dosing Weight 98.636 kg, Total Volume: 750, Start date: 04/11/14 11:58:00, Duration: 1 doses or times, St op date: 04/11/14 21:57:00 Start Date: 04/11/14 Stop Date: 04/11/14 Status: Completed spironolactone 25 mg oral tablet Daily, 0 Refill(s) Start Date: 04/11/14 Status: Ordered Vitamin B-12 500 mcg oral tablet 500 microgram=1 tab, PO, Daily, # 30 tab, 0 Refill(s) Start Date: 04/11/14 Status: Ordered Vitamin D3 1000 intl units oral capsule 1,000 IntlUnit=1 cap, PO, Daily, # 100 cap, 0 Refill(s) Start Date: 04/11/14 Status: Ordered Results BLOOD BANK RESULTS Most recent to 1 oldest [Reference Range]: ABO/Rh A POS *Unknown* (04/11/14 12:15 PM) Antibody Scrn Negative 1 (04/11/14 12:15 PM) FUENTES Gel Int Positive (04/11/14 12:15 PM) C3 Int Negative (04/11/14 12:15 PM) Path FUENTES 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 The eluate prepared from the RBC s is non-reactive. Positive FUENTES may be seen in up to 16% of hospitalized patients and be idiopathic in nature. It is also associated with various autoimmune disorders, hypergammaglobulinemia, certain malignancies, and following administration of specific medications. Clinical correlation is required. RBC's with a positive FUENTES can be expected to have decreased in vivo survival. The patient s electronic medical record has been reviewed for relevant information. I have reviewed the test results and concur with the resident's interpretation. CPT: 02274-AJ *NA* (04/11/14 12:15 PM) Eluate Int See Note 2 *Unknown* (04/11/14 12:15 PM) 1Result Comment: 04/11/2014 14:00 SHHLAVAT "Significant Findings called to Jessica Graham_at 1400__by SH__.Read Back OK." 2Result Comment: 04/11/2014 18:30 MIFIELDS Eluate non reactive with all cells tested. ELECTROLYTES Most recent to 1 oldest [Reference Range]: Sodium Lvl [135-145 140 mEq/L mEq/L] (04/11/14 12:01 PM) Potassium Lvl 4.5 mEq/L [3.5-5.1 mEq/L] (04/11/14 12:01 PM) Chloride Lvl [95-109 104 mEq/L mEq/L] (04/11/14 12:01 PM) CO2 [24-32 mEq/L] 28 mEq/L (04/11/14 12:01 PM) AGAP [10.0-20.0 12.5 mEq/L mEq/L] (04/11/14 12: PM) CHEM PANEL Most recent to 1 oldest [Reference Range]: Creatinine Lvl 1.3 mg/dL [0.5-1.4 mg/dL] (04/11/14 12: PM) eGFR 50 mL/min/1.73m2 3 *NA* (04/11/14 PM) BUN [7-22 mg/dL] 23 mg/dL *HI* (04/11/14: PM) Glucose Lvl [70-99 96 mg/dL 4 mg/dL] (04/11/14: PM) Total Protein 7.2 g/dL [6.4-8.4 g/dL] (04/11/14: PM) Albumin Lvl [3.5-5.0 3.7 g/dL g/dL] (04/11/14: PM) Globulin [2.0-4.0 3.5 g/dL g/dL] (04/11/14: PM) A/G Ratio [0.7-1.6] 1.1 (04/11/14: PM) Calcium Lvl 9.1 mg/dL [8.5-10.5 mg/dL] (04/11/14: PM) Magnesium Lvl 2.0 mg/dL [1.8-2.4 mg/dL] (04/11/14 12:01 PM) ALT [0-65 unit/L] 34 unit/L (04/11/14: PM) AST [0-37 unit/L] 26 unit/L (04/11/14 12: PM) Alk Phos [39-136 33 unit/L unit/L] *LOW* (04/11/14: PM) Bili Total [0.2-1.3 1.0 mg/dL mg/dL] (04/11/14 12:01 PM) Bili Direct [0.0-0.3 0.2 mg/dL mg/dL] (04/11/14 12: PM) Bili Indirect 0.8 mg/dL [0.0-1.0 mg/dL] (04/11/14 12:01 PM) 3Result Comment: The eGFR is calculated using the [...] be mul tiplied by the estimated BMI. 4Interpretive Data: Adult reference range values reflect the clinical guidelines of the [place] [employer]. CARDIAC ENZYMES Most recent to 1 oldest [Reference Range]: Total CK [12-191 133 unit/L unit/L] (04/11/14 12:01 PM) CK MB [0.5-3.6 4.3 ng/mL ng/mL] *HI* (04/11/14 12:01 PM) CK MB Index 3.2 [0.0-2.5] *HI* (04/11/14 12:01 PM) HEMATOLOGY Most recent to 1 oldest [Reference Range]: WBC [3.7-10.4 K/CMM] 4.8 K/CMM (04/11/14 12:01 PM) RBC [4.70-6.10 4.25 M/CMM M/CMM] *LOW* (04/11/14 12:01 PM) Hgb [14.0-18.0 g/dL] 13.2 g/dL *LOW* (04/11/14 12:01 PM) Hct [42.0-54.0 %] 38.2 % *LOW* (04/11/14 12:01 PM) MCV [80.0-94.0 fL] 89.7 fL (04/11/14 12:01 PM) MCH [27.0-31.0 pg] 31.0 pg (04/11/14 12: PM) MCHC [32.0-36.0 34.5 g/dL g/dL] (04/11/14 12:01 PM) RDW [11.5-14.5 %] 13.3 % (04/11/14: PM) Platelet [133-450 135 K/CMM K/CMM] (04/11/14: PM) MPV [7.4-10.4 fL] 9.8 fL (04/11/14: PM) Segs [45.0-75.0 %] 54.4 % (04/11/14: PM) Lymphocytes 31.5 % [20.0-40.0 %] (04/11/14: PM) Monocytes [2.0-12.0 10.4 % %] (04/11/14: PM) Eosinophils [0.0-4.0 2.9 % %] (04/11/14: PM) Basophils [0.0-1.0 0.8 % %] (04/11/14: PM) Segs-Bands # 2.6 K/CMM [1.5-8.1 K/CMM] (04/11/14:01 PM) Lymphocytes # 1.5 K/CMM [1.0-5.5 K/CMM] (04/11/14 12:01 PM) Monocytes # [0.0-0.8 0.5 K/CMM K/CMM] (04/11/14 12:01 PM) Eosinophils # 0.1 K/CMM [0.0-0.5 K/CMM] (04/11/14: PM) PT [12.0-14.7 14.6 seconds seconds] (04/11/14:01 PM) INR [0.85-1.17] 1.13 5 (04/11/14: PM) PTT [22.9-35.8 29.7 seconds 6 seconds] (04/11/14: PM) 5Interpretive Data: RECOMMENDED RANGES FOR PROTIME INR: 2.0-3.0 for most medical and surgical thromboembolic states. 2.5-3.5 for artificial heart valves and recurrent embolism. INR SHOULD BE USED ONLY FOR PATIENTS ON STABLE ANTICOAGULANT THERAPY. 6Interpretive Data: Heparin Therapeutic Range: 57 - 92 Seconds Medications Administered During Your Visit No data available for this section Immunizations No data available for this section Procedures Procedure Type Body Site Date of Procedure Related Diagnosis Stent placement Social History Social History Type Response Smoking Status Never smoker, Exposure to Tobacco Smoke None, Cigarette Smoking Last 365 Days No, Reg Smoking Cessation Counseling No
--- OUTSIDE RECORDS SUMMARY | 2018-06-07 10:42 | XMS REPORT | Summary of Care ---
Author Author [facility] Address Unknown Phone Unavailable Encounter [facility]_alibrandon(FIN) [id number] Date(s): 03/06/15 - 03/22/15 [facility] Discharge Disposition: Home Attending Physician: Georgina [...]
--- OUTSIDE RECORDS SUMMARY | 2018-06-07 10:42 | XMS REPORT | Continuity of Care Document ---
Author Author [facility] Interface Address Unknown Phone Unavailable Problems Problem Status Onset Date Classification Date Reported Comments Source NUMBNESS Active 04/21/2016 [facility] BILATERAL LEG NUMBNESS Active 04/21/2016 [facility] SHORTNESS OF BREATH Active 04/18/2016 [facility] TIA Active 04/18/2016 [facility] CAD Active 04/07/2014 [facility] AICD present(<span [id number]">Confirmed</span>) Resolved Problem 04/25/2016 [facility] Coronary artery disease Resolved Problem 04/25/2016 [facility] H/O peripheral neuropathy Resolved Problem 04/25/2016 [facility] Hypertension Resolved Problem 04/25/[address] [facility] BALANCE TRAINING Active [facility] [place] BALANCE TRANINING Active [facility] [place] BALANCETRAINING Active [facility] Medications Medication Details Route Status Patient Instructions Ordering Provider Order Date Source Zocor 10 mg, 1 tab, Route: PO, Drug form: TAB, Bedtime, Dosing Weight 95.455, kg, Start date: 04/22/16 21:00:00 CDT, Duration: 30 day, Stop date: 05/21/16 21:00:00 CSTNotes: (Same as: Zocor) Inactive 04/23/2016 [facility] Aspirin 81 MG Enteric Coated Tablet 81 mg, 1 tab, Route: PO, Drug form: ECTAB, Bedtime, Dosing Weight 95.455, kg, Start date: 04/22/16 21:00:00 CDT, Duration: 30 day, Stop date: 05/21/16 21:00:00 CSTNotes: Do not crush or chew. (Same As: Ecotrin) Inactive 04/23/2016 [facility] Enoxaparin 40 mg, 0.4 mL, Route: SUB-Q, Drug form: INJ, [id number], Dosing Weight 95.455, kg, Start date: 04/22/16 9:00:00 CDT, Duration: 30 day, Stop date: 05/21/16 9:00:00 CSTNotes: (Same as: Lovenox) Inactive 04/22/2016 [facility] Spironolactone 25 mg, 1 tab, Route: PO, Drug form: TAB, Daily, Dosing Weight 95.455, kg, Start date: 04/22/16 9:00:00 CDT, Duration: 30 day, Stop date: 05/21/16 9:00:00 CSTNotes: (Same As: Aldactone) Inactive 04/22/2016 [facility] 24 HR Metoprolol Tartrate 25 MG Extended Release Tablet [Toprol] 25 mg, 1 tab, Route: PO, Drug form: ERTAB, Daily, Start date: 04/22/16 9:00:00 CDT, Duration: 30 day, Stop date: 05/21/16 9:00:00 CSTNotes: (Same as: Toprol XL) Do Not Crush Inactive 04/22/2016 [facility] Vitamin B 12 500 microgram, 1 tab, Route: PO, Drug form: TAB, Daily, Dosing Weight 95.455, kg, Start date: 04/22/16 9:00:00 CDT, Duration: 30 day, Stop date: 05/21/16 9:00:00 CSTNotes: (Same As: Vitamin B12) Inactive 04/22/2016 [facility] Plavix 37.5 mg, 0.5 tab, Route: PO, Drug form: TAB, Daily, Dosing Weight 95.455, kg, Start date: 04/22/16 9:00:00 CDT, Duration: 30 day, Stop date: 05/21/16 9:00:00 CSTNotes: (Same As: Plavix) Inactive 04/22/2016 [facility] Vitamin D3 1000 intl units oral tablet 1,000 IntlUnit, 1 tab, Route: PO, Drug form: TAB, Daily, Dosing Weight 95.455, kg, Start date: 04/22/16 9:00:00 CDT, Duration: 30 day, Stop date: 05/21/16 9:00:00 CSTNotes: Same as : Vitamin D3 Inactive 04/22/2016 [facility] Yuko-C 500 mg, Route: PO, Drug form: TAB, Daily, Dosing Weight 95.455, kg, Start date: 04/22/16 9:00:00 CDT, Duration: 30 day, Stop date: 05/21/16 9:00:00 ENTRANCE GUARD Inactive 04/22/2016 [facility] Osteo Bi-Flex Daily, bedtime, 0 Refill(s) Active 04/22/2016 [facility] Morphine 2 mg, 1 mL, Route: IVP, Drug form: INJ, Q4H, Dosing Weight 95.455, kg, PRN Pain Score 7-10, Start date: 04/22/16 2:53:00 CDT, Duration: 30 day, Stop date: 05/22/16 2:52:00 CSTNotes: (Same as:MORPhine Sulfate) Inactive 04/22/2016 [facility] Ondansetron 4 mg, 2 mL, Route: IVP, Drug form: INJ, Q6H, Dosing Weight 95.455, kg, PRN Nausea & Vomiting, Start date: 04/22/16 2:53:00 CDT, Duration: 30 day, Stop date: 05/22/16 2:52:00 CSTNotes: (Same as: Sissy) MEDICATION WASTE Product Size: 4 mg Product Wasted: ___ mg Inactive 04/22/2016 [facility] Acetaminophen 650 mg, 2 tab, Route: PO, Drug form: TAB, Q4H, Dosing Weight 95.455, kg, PRN Pain 1-3/Temp > 100.4 F, Start date: 04/22/16 2:53:00 CDT, Duration: 30 day, Stop date: 05/22/16 2:52:00 CSTNotes: Do not exceed 4 gm/day. (Same as: Tylenol) Inactive 04/22/2016 [facility] Docusate 100 mg, 1 cap, Route: PO, Drug form: CAP, BID, Dosing Weight 95.455, kg, PRN Constipation, Start date: 04/22/16 2:53:00 CDT, Duration: 30 day, Stop date: 05/22/16 2:52:00 CSTNotes: (Same as: Colace) (Do Not Crush) Inactive 04/22/2016 [facility] Saline Flush 0.9% 10 mL, Route: IVP, Drug Form: INJ, Dosing Weight 95.455, kg, PRN, PRN Line Flush, Start date: 04/21/16 23:38:00 CDT, Duration: 30 day, Stop date: 05/21/16 22:37:00 CSTNotes: (Same as: BD Posiflush) No Longer Active 04/22/2016 [facility] Saline Flush 0.9% 10 mL, Route: IVP, Drug Form: INJ, Dosing Weight 95.455, kg, PRN, PRN Line Flush, Start date: 04/21/16 23:14:00 CDT, Duration: 30 day, Stop date: 05/21/16 22:13:00 CSTNotes: (Same as: BD Posiflush) No Longer Active 04/22/2016 [facility] Aspirin 324 mg, Route: PO, ONCE, Dosing Weight 95.455, kg, Priority: STAT, Start date: 04/21/16 23:14:00 CDT, Stop date: 04/21/16 23:14:00 CDT No Longer Active 04/22/2016 [facility] Aspirin 81 MG Enteric Coated Tablet 81 mg, 1 tab, Route: PO, Drug form: ECTAB, Bedtime, Dosing Weight 95.455, kg, Start date: 04/19/16 21:00:00 CDT, Duration: 30 day, Stop date: 05/18/16 21:00:00 CSTNotes: Do not crush or chew. (Same As: Ecotrin) Inactive 04/20/2016 [facility] Simvastatin 10 MG Oral Tablet [Zocor] 10 mg=1 tab, PO, Bedtime, # 30 tab, 0 Refill(s), Pharmacy: [id number] Active 04/19/2016 [facility] Plavix 37.5 mg, 0.5 tab, Route: PO, Drug form: TAB, Daily, Dosing Weight 95.455, kg, Start date: 04/19/16 9:00:00 CDT, Duration: 30 day, Stop date: 05/18/16 9:00:00 CSTNotes: (Same As: Plavix) Inactive 04/19/2016 [facility] Vitamin D3 1000 intl units oral tablet 1,000 IntlUnit, 1 tab, Route: PO, Drug form: TAB, Daily, Dosing Weight 95.455, kg, Start date: 04/19/16 9:00:00 CDT, Duration: 30 day, Stop date: 05/18/16 9:00:00 CSTNotes: Same as : Vitamin D3 Inactive 04/19/2016 [facility] 24 HR Metoprolol Tartrate 25 MG Extended Release Tablet [Toprol] 25 mg, 1 tab, Route: PO, Drug form: ERTAB, Daily, Start date: 04/19/16 9:00:00 CDT, Duration: 30 day, Stop date: 05/18/16 9:00:00 CSTNotes: (Same as: Toprol XL) Do Not Crush Inactive 04/19/2016 [facility] Spironolactone 25 mg, 1 tab, Route: PO, Drug form: TAB, Daily, Dosing Weight 95.455, kg, Start date: 04/19/16 9:00:00 CDT, Duration: 30 day, Stop date: 05/18/16 9:00:00 CSTNotes: (Same As: Aldactone) Inactive 04/19/2016 [facility] nitroglycerin 0.4 mg sublingual tablet 0.4 mg, 1 tab, Route: SL, Drug form: TAB, Q5Min, PRN Chest Pain, Start date: 04/19/16 0:09:00 CDT, Duration: 30 day, Stop date: 05/18/16 23:08:00 CSTNotes: (Same as:Nitroquick, Nitrostat) "Do Not Crush" Sublingual tablet Inactive 04/19/2016 [facility] atropine 0.5 mg, 5 mL, Route: IVP, Drug form: INJ, PRN, PRN Bradycardia, Start date: 04/19/16 0:09:00 CDT, Duration: 30 day, Stop date: 05/18/16 23:08:00 ENTRANCE GUARD Inactive 04/19/2016 [facility] Acetaminophen 650 mg, 2 tab, Route: PO, Drug form: TAB, Q4H, Dosing Weight 95.455, kg, PRN Pain 1-3/Temp > 100.4 F, Start date: 04/18/16 22:13:00 CDT, Duration: 30 day, Stop date: 05/18/16 22:12:00 CSTNotes: Do not exceed 4 gm/day. (Same as: Tylenol) No Longer Active 04/19/2016 [facility] Docusate 100 mg, 1 cap, Route: PO, Drug form: CAP, BID, Dosing Weight 95.455, kg, PRN Constipation, Start date: 04/18/16 22:13:00 CDT, Duration: 30 day, Stop date: 05/18/16 22:12:00 CSTNotes: (Same as: Colace) (Do Not Crush) No Longer Active 04/19/2016 [facility] Morphine 2 mg, 1 mL, Route: IVP, Drug form: INJ, Q4H, Dosing Weight 95.455, kg, PRN Pain Score 7-10, Start date: 04/18/16 22:13:00 CDT, Duration: 30 day, Stop date: 05/18/16 22:12:00 CSTNotes: (Same as:MORPhine Sulfate) No Longer Active 04/19/2016 [facility] Ondansetron 4 mg, 2 mL, Route: IVP, Drug form: INJ, Q6H, Dosing Weight 95.455, kg, PRN Nausea & Vomiting, Start date: 04/18/16 22:13:00 CDT, Duration: 30 day, Stop date: 05/18/16 22:12:00 CSTNotes: (Same as: Zofran) MEDICATION WASTE Product Size: 4 mg Product Wasted: ___ mg No Longer Active 04/19/2016 [facility] Aspirin 324 mg, 4 tab, Route: CHEW, Drug form: CHEWTAB, ONCE, Dosing Weight 95.455, kg, Priority: STAT, Start date: 04/18/16 21:12:00 CDT, Stop date: 04/18/16 21:12:00 CDTNotes: Take with food. Inactive 04/19/2016 [facility] Aspirin 81 MG Enteric Coated Tablet 81 mg=1 tab, PO, Bedtime, 0 Refill(s) Active 04/19/2016 [facility] Saline Flush 0.9% 10 mL, Route: IVP, Drug Form: INJ, Dosing Weight 95.455, kg, PRN, PRN Line Flush, Start date: 04/18/16 18:46:00 CDT, Duration: 30 day, Stop date: 05/18/16 17:45:00 CSTNotes: (Same as: BD Posiflush) Inactive 04/18/2016 [facility] Saline Flush 0.9% 10 ml, Route: IVP, Drug Form: INJ, Dosing Weight 98.636, kg, Q12H, Start date: 04/11/14 21:00:00, Duration: 30 day, Stop date: 05/11/14 9:00:00Notes: (Same as: BD Posiflush) No Longer Active 04/12/2014 [facility] Nitroglycerin 0.4 mg, 1 tab, Route: SL, Drug form: TAB, Q5Min, Dosing Weight 98.636, kg, PRN Chest Pain, Start date: 04/11/14 14:41:00, Duration: 3 doses or times, Stop date: 04/11/14 17:00:00Notes: (Same as:Nitro quick, Nitrostat) "Do Not Crush" Sublingual tablet Inactive 04/11/2014 [facility] Saline Flush 0.9% 10 ml, Route: IVP, Drug Form: INJ, Dosing Weight 98.636, kg, PRN, PRN Line Flush, Start date: 04/11/14 14:41:00, Duration: 30 day, Stop date: 05/11/14 13:40:00Notes: (Same as: BD Posiflush) No Longer Active 04/11/2014 [facility] Vitamin D3 1000 intl units oral capsule 1,000 IntlUnit=1 cap, PO, Daily, # 100 cap, 0 Refill(s) Active 04/11/2014 [facility] spironolactone 25 mg oral tablet Daily, 0 Refill(s) Active 04/11/2014 [facility] Aspirin Low Dose 81 mg oral tablet 0 Refill(s) Active 04/11/2014 [facility] lisinopril 2.5 mg oral tablet 2.5 mg=1 tab, PO, Daily, # 30 tab, 0 Refill(s) Active 04/11/2014 [facility] 24 HR Isosorbide Mononitrate 30 MG Extended Release Tablet [Imdur] 30 mg=1 tab, PO, QAM, # 30 tab, 0 Refill(s) Active 04/11/2014 [facility] Yuko-C 500 mg oral tablet =1 tab, PO, Daily, # 60 tab, 0 Refill(s) Active 04/11/2014 [facility] pregabalin 75 MG Oral Capsule [Lyrica] 75 mg=1 cap, PO, TID, # 90 cap, 0 Refill(s) Active 04/11/2014 [facility] Centrum Silver oral tablet 1 tab, PO, Daily, # 30 tab, 0 Refill(s) Active 04/11/2014 [facility] clopidogrel 75 MG Oral Tablet [Plavix] 75 mg=1 tab, PO, Daily, # 30 tab, 0 Refill(s) Active 04/11/2014 [facility] Vitamin B-12 500 mcg oral tablet 500 microgram=1 tab, PO, Daily, # 30 tab, 0 Refill(s) Active 04/11/2014 [facility] metoprolol 25 mg oral tablet, extended release 25 mg, PO, Daily, # 30 tab, 0 Refill(s) Active 04/11/2014 [facility] Saline Flush 0.9% 10 ml, Route: IVP, Drug Form: INJ, Dosing Weight 98.636, kg, PRN, PRN Line Flush, Start date: 04/11/14 11:58:00, Duration: 30 day, Stop date: 05/11/14 10:57:00Notes: (Same as: BD Posiflush) Inactive 04/11/2014 [facility] Sodium Chloride 0.154 MEQ/ML Injectable Solution 250 mL, 250 ml/hr, Infuse Over: 1 hr, Route: IV, 250, Drug form: INJ, ONCE, Priority: Routine, Dosing Weight 98.636 kg, Start date: 04/11/14 11:58:00, Duration: 1 doses or times, Stop date: 04/11/14 11:58:00 Inactive 04/11/2014 [facility] Allergies, Adverse Reactions, Alerts Substance Category Reaction Severity Reaction type Status Date Reported Comments Source Avelox Assertion peripheral neuropathy Propensity to adverse reactions to drug Active [facility] Levaquin Assertion peripheral neuropathy Propensity to adverse reactions to drug Active [facility] penicillins Assertion Drug allergy Active [facility] bumetanide Assertion throat swelling Drug allergy Active [facility] Cipro Assertion peripheral neuropathy Propensity to adverse reactions to drug Active [facility] simvastatin Assertion Drug allergy Active [facility] Immunizations Immunization Date Given Site Status Last Updated Comments Source Results Order Name Results Value Reference Range Date Interpretation Comments Source CARDIAC ENZYMES Troponin-I 0.09 ng/mL 0.00 - 0.40 04/22/2016 [facility] CHEM PANEL Creatinine Lvl 1.30 mg/dL 0.50 - 1.40 04/22/2016 [facility] CHEM PANEL eGFR 49 mL/min/1.73m2 04/22/2016 Result Comment: The eGFR is calculated using the [...] from the National Kidney Disease Education Program (NKDEP) which additionally recommends that when the eGFR is used in patients with extremes of body mass index for purposes of drug dosing, the eGFR should be multiplied by the estimated BMI. [facility] HEMATOLOGY Platelet 126 K/CMM 133 - 450 04/22/2016 [facility] CARDIAC ENZYMES Troponin-I 0.10 ng/mL 0.00 - 0.40 04/22/2016 [facility] CARDIAC ENZYMES CK MB Index 4.1 0.0 - 2.5 04/22/2016 [facility] CARDIAC ENZYMES Troponin-I 0.09 ng/mL 0.00 - 0.40 04/22/2016 [facility] CARDIAC ENZYMES CK MB 4.3 ng/mL 0.5 - 3.6 04/22/2016 [facility] CARDIAC ENZYMES Total CK 105 unit/L 12 - 191 04/22/2016 [facility] CARDIAC ENZYMES BNP 339 pg/mL <=100 pg/mL 04/22/2016 [facility] CHEM PANEL eGFR 45 mL/min/1.73m2 04/22/2016 Result Comment: The eGFR is calculated using the [...] from the National Kidney Disease Education Program (NKDEP) which additionally recommends that when the eGFR is used in patients with extremes of body mass index for purposes of drug dosing, the eGFR should be multiplied by the estimated BMI. [facility] CHEM PANEL Potassium Lvl 4.4 meq/L 3.5 - 5.1 04/22/2016 [facility] CHEM PANEL Sodium Lvl 136 meq/L 135 - 145 04/22/2016 [facility] CHEM PANEL Calcium Lvl 9.0 mg/dL 8.5 - 10.5 04/22/2016 [facility] CHEM PANEL CO2 23 meq/L 24 - 32 04/22/2016 [facility]M PANEL Chloride Lvl 103 meq/L 95 - 109 04/22/2016 [facility] CHEM PANEL Bili Total 0.5 mg/dL 0.2 - 1.3 04/22/2016 [facility] CHEM PANEL B/C Ratio 21 6 - 25 04/22/2016 [facility] CHEM PANEL AGAP 14.4 meq/L 10.0 - 20.0 04/22/2016 [facility] CHEM PANEL A/G Ratio 0.9 0.7 - 1.6 04/22/2016 [facility] PAN[facility] Globulin 4.5 g/dL 2.7 - 4.2 04/22/2016 [facility] CHEM PANEL Albumin Lvl 3.9 g/dL 3.5 - 5.0 04/22/2016 [facility] CHEM PANEL Total Protein 8.4 g/dL 6.4 - 8.4 04/22/2016 [facility] CHEM PANEL Alk Phos 46 unit/L 39 - 136 04/22/2016 [facility] CHEM PANEL AST 34 unit/L 0 - 37 04/22/2016 [facility] CHEM PANEL ALT 39 unit/L 0 - 65 04/22/2016 [facility] CHEM PANEL BUN 29 mg/dL 7 - 22 04/22/2016 [facility] CHEM PANEL Glucose Lvl 100 mg/dL 70 - 99 04/22/2016 [facility] CHEM PANEL Creatinine Lvl 1.40 mg/dL 0.50 - 1.40 04/22/2016 [facility] HEMATOLOGY Eosinophils # 0.1 K/CMM 0.0 - 0.5 04/22/2016 [facility] HEMATOLOGY Basophils # 0.1 K/CMM 0.0 - 0.2 04/22/2016 [facility] HEMATOLOGY Lymphocytes # 1.5 K/CMM 1.0 - 5.5 04/22/2016 [facility] HEMATOLOGY Monocytes # 0.5 K/CMM 0.0 - 0.8 04/22/2016 [facility] Lymphocytes 26.8 % 20.0 - 40.0 04/22/2016 [facility] Segs-Bands # 3.4 K/CMM 1.5 - 8.1 04/22/2016 [facility] Monocytes 8.3 % 2.0 - 12.0 04/22/2016 [facility] Eosinophils 2.3 % 0.0 - 4.0 04/22/2016 [facility] Basophils 1.9 % 0.0 - 1.0 04/22/2016 [facility] Segs 60.7 % 45.0 - 75.0 04/22/2016 [facility] Platelet 135 K/CMM 133 - 450 04/22/2016 [facility] MPV 11.0 fL 7.4 - 10.4 04/22/2016 [facility] RDW 12.9 % 11.5 - 14.5 04/22/2016 [facility] WBC 5.6 K/CMM 3.7 - 10.4 04/22/2016 [facility] RBC 5.16 M/CMM 4.70 - 6.10 04/22/2016 [facility] MCH 29.7 pg 27.0 - 31.0 04/22/2016 [facility] MCHC 33.2 g/dL 32.0 - 36.0 04/22/2016 [facility] Hgb 15.3 g/dL 14.0 - 18.0 04/22/2016 [facility] Hct 46.2 % 42.0 - 54.0 04/22/2016 [facility] MCV 89.4 fL 80.0 - 94.0 04/22/2016 [facility] INR 1.07 0.85 - 1.17 04/22/2016 [facility] PT 14.1 s 12.0 - 14.7 04/22/2016 [facility] PTT 28.8 s 22.9 - 35.8 04/22/2016 [facility] Brain wo contrast CT Brain wo contrast CT Clinical Indication: Headache with Dizziness and Giddiness pt c/o pressure and numbness in BLE and chest since today. Hx of neuropathy, LBBB, and cardiac bypass Comparison: 04/19/2016 TECHNIQUE: CT images were obtained from the foramen magnum to the vertex without the use of intravenous contrast on a multidetector CT. Coronal and sagittal reconstructions were obtained. CT radiation dose DLP: 1023.80 mGy-cm FINDINGS: BRAIN PARENCHYMA: Age appropriate involutionary changes with mild small vessel ischemic changes. There are otherwise normal sterling-white interfaces, sulci and gyri. There are no focal mass lesions on this noncontrast head CT. There is no mass effect, midline shift or edema. There are no intra-axial or extra-axial fluid collections, intraventricular or intraparenchymal hemorrhage. The pineal, sellar, brainstem, cerebellum and skull base regions appear unremarkable. VENTRICLES: The lateral ventricles, third and fourth ventricles appear unremarkable. The basilar cisterns are normal. ORBITS, MASTOIDS AND PARANASAL SINUSES: The visualized orbits and paranasal sinuses are otherwise unremarkable. The mastoid air cells are unopacified. SKULL: There are no osseous abnormalities. If there is further concern for intracranial pathology or acute stroke, MRI of the brain may be performed for complete assessment. IMPRESSION: 1. Age appropriate involutionary changes with mild small vessel ischemic changes. SL: RANI 04/22/2016 - - Read by: Bernardo Young DO Dictated Date/time: 04/22/16 00:20 Electronically Signed by: Bernardo Young DO 04/22/16 00:24 FINAL REPORT [facility] Chest 1view DX Chest 1view DX EXAM: XR CHEST 1 VIEW DATE: 04/21/2016 11:14 PM CDT INDICATION: Chest pain COMPARISON: 04/18/2016 TECHNIQUE: Frontal chest radiograph FINDINGS: An automatic implantable cardiac defibrillator remains in place. The lungs are clear. The cardiomediastinal silhouette is stable. The descending thoracic aorta is again noted to be ectatic and/or tortuous. There is no acute bony abnormality. IMPRESSION: No acute abnormality SL: ZENAIDA 04/21/2016 - - Read by: Heather Horn Dictated Date/time: 04/21/16 23:53 Electronically Signed by: Heather Horn 04/21/16 23:54 FINAL REPORT [facility] Brain/Neck CTA Brain/Neck CTA Brain/Neck CTA, and CT head without IV contrast, 04/19/2016 1:00 PM CDT Ordering Physician: Arturo Cruz MD CLINICAL INDICATION: Facial numbness; COMPARISON: CT head last night TECHNIQUE: 5 mm thick axial images of the head were obtained without IV contrast. 0.625 mm thick axial images of the head and neck were obtained with IV contrast via arteriographic protocol, with subsequent 2 mm thick axial reconstructions. Coronal and sagittal reformations were created. Three- dimensional reconstructions of the intracranial and cervical arterial circulation were created at an independent workstation. FINDINGS: CT HEAD: Sterling-white matter junction demonstrates minimal scattered patchy hypoattenuating foci. No acute intracranial hemorrhage is present. Ventricles, sulci, and cisterns are slightly prominent in size. No midline shift is present. Intracranial arterial atherosclerotic calcific disease is present. Orbits are normal. Visualized sinuses and air cells are clear. Calvarium is intact. CTA HEAD: Bilateral intracranial internal carotid artery segments are patent, with mild calcified plaque in the internal carotid artery siphons. [place] and its major branches are patent from their respective origins to their distal perfusional territories. Vertebrobasilar system is patent. No aneurysm is present. CTA NECK: Right carotid bulb mild calcified plaque creates less than 25% endoluminal stenosis. Proximal right internal carotid artery mild to moderate mixed plaque creates a 50% short segment endoluminal stenosis. Left carotid bulb mild mixed plaque creates less than 25% endoluminal stenosis. Proximal left internal carotid artery tiny calcified plaque is present.. Bilateral vertebral arteries are patent. Thyroid gland contains a left lobe heterogeneously attenuating 2.5 cm nodule. No abnormal mass, focal fluid collection, or lymphadenopathy is present. Pharyngeal soft tissues are normal. Salivary glands are normal. Bones demonstrate lower cervical spine spondylosis. Visualized upper lungs reveal left upper lobe nodular and patchy airspace opacities. IMPRESSION: 1. CT head: No acute abnormality of the brain on CT. 2. CTA head: No significant abnormality. 3. Proximal cervical right internal carotid artery mild to moderate mixed plaque creating a 50% short segment endoluminal stenosis. 4. Bilateral carotid bulb mild atheromatous plaque creating less than 25% endoluminal stenosis, and therefore of no hemodynamic significance. 5. Left thyroid lobe roughly 2.5 cm nodule. May consider nonemergent outpatient thyroid ultrasound for further evaluation if clinically warranted. 6. Left upper lobe patchy and nodular opacities, possibly pneumonia. Recommend repeat CT chest in 6-8 weeks after medical treatment to assess for clearance. NASCET criteria were utilized. SL: [id number] 04/19/2016 - - Read by: Renetta Workman MD Dictated Date/time: 04/19/16 16:49 Electronically Signed by: Renetta Workman MD 04/19/16 17:04 FINAL REPORT [facility] CARDIAC ENZYMES Total CK 122 unit/L 12 - 191 04/19/2016 [facility] CARDIAC ENZYMES Troponin-I 0.10 ng/mL 0.00 - 0.40 04/19/2016 [facility] CARDIAC ENZYMES CK MB Index 4.7 0.0 - 2.5 04/19/2016 [facility] CARDIAC ENZYMES CK MB 5.7 ng/mL 0.5 - 3.6 04/19/2016 [facility] CHEM PANEL Phosphorus 3.9 mg/dL 2.5 - 4.5 04/19/2016 [facility] CHEM PANEL Globulin 4.0 g/dL 2.7 - 4.2 04/19/2016 [facility] CHEM PANEL A/G Ratio 0.8 0.7 - 1.6 04/19/2016 [facility] CHEM PANEL B/C Ratio 18 6 - 25 04/19/2016 [facility] CHEM PANEL AGAP 11.8 meq/L 10.0 - 20.0 04/19/2016 [facility] CHEM PANEL eGFR 54 mL/min/1.73m2 04/19/2016 Result Comment: The eGFR is calculated using the [...] from the National Kidney Disease Education Program (NKDEP) which additionally recommends that when the eGFR is used in patients with extremes of body mass index for purposes of drug dosing, the eGFR should be multiplied by the estimated BMI. [facility] CHEM PANEL Total Protein 7.3 g/dL 6.4 - 8.4 04/19/2016 [facility] CHEM PANEL CO2 25 meq/L 24 - 32 04/19/2016 [facility] CHEM PANEL Calcium Lvl 8.4 mg/dL 8.5 - 10.5 04/19/2016 [facility] CHEM PANEL AST 32 unit/L 0 - 37 04/19/2016 [facility] CHEM PANEL Bili Total 0.9 mg/dL 0.2 - 1.3 04/19/2016 [facility] CHEM PANEL Alk Phos 38 unit/L 39 - 136 04/19/2016 [facility] CHEM PANEL ALT 35 unit/L 0 - 65 04/19/2016 [facility] CHEM PANEL Albumin Lvl 3.3 g/dL 3.5 - 5.0 04/19/2016 [facility] CHEM PANEL Potassium Lvl 3.8 meq/L 3.5 - 5.1 04/19/2016 [facility] CHEM PANEL Sodium Lvl 138 meq/L 135 - 145 04/19/2016 [facility] CHEM PANEL Chloride Lvl 105 meq/L 95 - 109 04/19/2016 [facility] CHEM PANEL Glucose Lvl 86 mg/dL 70 - 99 04/19/2016 [facility] CHEM PANEL BUN 22 mg/dL 7 - 22 04/19/2016 [facility] CHEM PANEL Creatinine Lvl 1.20 mg/dL 0.50 - 1.40 04/19/2016 [facility] CHEM PANEL Magnesium Lvl 2.1 mg/dL 1.8 - 2.4 04/19/2016 [facility] HEMATOLOGY Platelet 99 K/CMM 133 - 450 04/19/2016 [facility] HEMATOLOGY MPV 9.5 fL 7.4 - 10.4 04/19/2016 [facility] HEMATOLOGY Hct 41.1 % 42.0 - 54.0 04/19/2016 [facility] MCH 30.4 pg 27.0 - 31.0 04/19/2016 [facility] MCHC 34.1 g/dL 32.0 - 36.0 04/19/2016 [facility] HEMATOLOGY RDW 12.9 % 11.5 - 14.5 04/19/2016 [facility] HEMATOLOGY MCV 89.0 fL 80.0 - 94.0 04/19/2016 [facility] HEMATOLOGY WBC 3.6 K/CMM 3.7 - 10.4 04/19/2016 [facility] HEMATOLOGY RBC 4.62 M/CMM 4.70 - 6.10 04/19/2016 [facility] HEMATOLOGY Hgb 14.0 g/dL 14.0 - 18.0 04/19/2016 [facility] HEMATOLOGY Monocytes # 0.6 K/CMM 0.0 - 0.8 04/19/2016 [facility] HEMATOLOGY Eosinophils # 0.1 K/CMM 0.0 - 0.5 04/19/2016 [facility] HEMATOLOGY Lymphocytes # 1.6 K/CMM 1.0 - 5.5 04/19/2016 [facility] HEMATOLOGY Segs-Bands # 1.3 K/CMM 1.5 - 8.1 04/19/2016 [facility] HEMATOLOGY Basophils 1.1 % 0.0 - 1.0 04/19/2016 [facility] HEMATOLOGY Eosinophils 2.7 % 0.0 - 4.0 04/19/2016 [facility] HEMATOLOGY Lymphocytes 43.0 % 20.0 - 40.0 04/19/2016 [facility] HEMATOLOGY Segs 36.0 % 45.0 - 75.0 04/19/2016 [facility] HEMATOLOGY Plt Morph Normal (04/19/16 4:40 AM) 04/19/2016 [facility] HEMATOLOGY Monocytes 17.2 % 2.0 - 12.0 04/19/2016 [facility] RBC Morph Normal (04/19/16 4:40 AM) 04/19/2016 [facility] LIPIDS VLDL 26 04/19/2016 [facility] LIPIDS Trig 131 mg/dL <=149 mg/dL 04/19/2016 [facility] LIPIDS Chol 155 mg/dL <=199 mg/dL 04/19/2016 [facility] LIPIDS LDL (Calculated) 97 mg/dL <=99 mg/dL 04/19/2016 [facility] LIPIDS HDL 32 mg/dL >=61 mg/dL 04/19/2016 [facility] LIPIDS CHD Risk 4.84 4.00 - 7.30 04/19/2016 [facility] Carotid artery Doppler bilat US Carotid artery Doppler bilat US Patient Name: AN WEIR : 1930; Age: 86 years y/o Male MR: [id number] Study: Carotid artery Doppler bilat US 04/19/2016 7:20 AM CDT Ordering Physician: Yessica Boyd MD Clinical Indication: Acute Cerebral Accident; Comparison: None TECHNIQUE: Sterling-scale, color Doppler and spectral Doppler of the carotid arteries was performed. Any reported ICA stenoses indirectly reference the distal internal carotid diameter as the denominator for the stenosis measurement, utilizing consensus panel criteria. FINDINGS: RIGHT: No significant plaque ICA PSV 150 cm/sec CCA PSV 63 cm/sec ICA/CCA ratio 2.4 Vertebral flow is antegrade. External carotid artery is patent. LEFT: No significant plaque ICA PSV 70 cm/sec CCA PSV 75 cm/sec ICA/CCA ratio 0.9 Vertebral flow is antegrade. External carotid artery is patent. IMPRESSION: 1. RIGHT: ICA stenosis 50-69 % by velocity criteria. 1. LEFT: ICA stenosis <50 % by velocity criteria. Consensus panel Doppler US criteria for diagnosis of ICA stenosis: Stenosis (%) ICA PSV (cm/sec) ICA/CCA ratio <50 <125 <2.0 50-69 125-230 2.0-4.0 >70 but less than >230 >4.0 near occlusion Near occlusion High, low, or Variable undetectable : [id number] 04/19/2016 - - Read by: Ray Gilbert MD Dictated Date/time: 04/19/16 11:36 Electronically Signed by: Ray Gilbert MD 04/19/16 11:37 FINAL REPORT [facility] CARDIAC ENZYMES CK MB 5.3 ng/mL 0.5 - 3.6 04/19/2016 [facility] CARDIAC ENZYMES CK MB Index 4.6 0.0 - 2.5 04/19/2016 [facility] CARDIAC ENZYMES Total CK 115 unit/L 12 - 191 04/19/2016 [facility] CARDIAC ENZYMES Troponin-I 0.11 ng/mL 0.00 - 0.40 04/19/2016 [facility] URINE AND STOOL UA Urobilinogen <=1.0 mg/dL 0.1 - 1.0 04/19/2016 [facility] URINE AND STOOL UA Color Ltyellow 04/19/2016 [facility] URINE AND STOOL UA Nitrite Negative (04/18/16 9:53 PM) Negative 04/19/2016 [facility] URINE AND STOOL UA Leuk Est Negative (04/18/16 9:53 PM) Negative 04/19/2016 [facility] URINE AND STOOL UA Glucose Negative mg/dL Negative mg/dL 04/19/2016 [facility] URINE AND STOOL UA Protein Negative mg/dL Negative mg/dL 04/19/2016 [facility] URINE AND STOOL UA Ketones 20 mg/dL Negative mg/dL 04/19/2016 [facility] URINE AND STOOL UA Blood Negative (04/18/16 9:53 PM) Negative 04/19/2016 [facility] URINE AND STOOL UA Bili Negative *NA* (04/18/16 9:53 PM) Negative 04/19/2016 [facility] URINE AND STOOL UA WBC null 0 - 5 04/19/2016 [facility] URINE AND STOOL UA Sq Epi Occasional /LPF Few /LPF 04/19/2016 [facility] URINE AND STOOL UA Mucus Few /LPF None Seen /LPF 04/19/2016 [facility] URINE AND STOOL UA RBC 2 /HPF 0 - 2 04/19/2016 [facility] URINE AND STOOL UA Turbidity Clear (04/18/16 9:53 PM) Clear 04/19/2016 [facility] URINE AND STOOL UA pH 5.0 5.0 - 8.0 04/19/2016 [facility] URINE AND STOOL UA Spec Grav 1.019 <=1.030 04/19/2016 [facility] CARDIAC ENZYMES Troponin-I 0.08 ng/mL 0.00 - 0.40 04/19/2016 [facility] CARDIAC ENZYMES Total CK 146 unit/L 12 - 191 04/19/2016 [facility] CARDIAC ENZYMES CK MB 6.7 ng/mL 0.5 - 3.6 04/19/2016 [facility] CARDIAC ENZYMES BNP 479 pg/mL <=100 pg/mL 04/19/2016 [facility] CARDIAC ENZYMES CK MB Index 4.6 0.0 - 2.5 04/19/2016 [facility] CHEM PANEL eGFR 45 mL/min/1.73m2 04/19/2016 Result Comment: The eGFR is calculated using the [...] from the National Kidney Disease Education Program (NKDEP) which additionally recommends that when the eGFR is used in patients with extremes of body mass index for purposes of drug dosing, the eGFR should be multiplied by the estimated BMI. [facility] CHEM PANEL A/G Ratio 0.9 0.7 - 1.6 04/19/2016 [facility] CHEM PANEL Globulin 4.6 g/dL 2.7 - 4.2 04/19/2016 [facility] CHEM PANEL AGAP 12.4 meq/L 10.0 - 20.0 04/19/2016 [facility] CHEM PANEL Glucose Lvl 91 mg/dL 70 - 99 04/19/2016 [facility] CHEM PANEL ALT 41 unit/L 0 - 65 04/19/2016 [facility] CHEM PANEL Albumin Lvl 4.0 g/dL 3.5 - 5.0 04/19/2016 [facility] CHEM PANEL Total Protein 8.6 g/dL 6.4 - 8.4 04/19/2016 [facility] CHEM PANEL CO2 26 meq/L 24 - 32 04/19/2016 [facility] CHEM PANEL Calcium Lvl 8.8 mg/dL 8.5 - 10.5 04/19/2016 [facility] CHEM PANEL Chloride Lvl 103 meq/L 95 - 109 04/19/2016 [facility] CHEM PANEL Potassium Lvl 4.4 meq/L 3.5 - 5.1 04/19/2016 [facility] CHEM PANEL Sodium Lvl 137 meq/L 135 - 145 04/19/2016 [facility] CHEM PANEL Creatinine Lvl 1.40 mg/dL 0.50 - 1.40 04/19/2016 [facility] CHEM PANEL BUN 22 mg/dL 7 - 22 04/19/2016 [facility] CHEM PANEL B/C Ratio 16 6 - 25 04/19/2016 [facility] CHEM PANEL Bili Total 0.7 mg/dL 0.2 - 1.3 04/19/2016 [facility] CHEM PANEL Alk Phos 47 unit/L 39 - 136 04/19/2016 [facility] CHEM PANEL AST 32 unit/L 0 - 37 04/19/2016 [facility] CHEM PANEL Magnesium Lvl 2.1 mg/dL 1.8 - 2.4 04/19/2016 [facility] HEMATOLOGY WBC 4.6 K/CMM 3.7 - 10.4 04/19/2016 [facility] HEMATOLOGY Hgb 14.8 g/dL 14.0 - 18.0 04/19/2016 [facility] HEMATOLOGY Hct 44.9 % 42.0 - 54.0 04/19/2016 [facility] HEMATOLOGY MCV 89.3 fL 80.0 - 94.0 04/19/2016 [facility] HEMATOLOGY MCH 29.4 pg 27.0 - 31.0 04/19/2016 [facility] MPV 9.8 fL 7.4 - 10.4 04/19/2016 [facility] Platelet 131 K/CMM 133 - 450 04/19/2016 [facility] RBC 5.03 M/CMM 4.70 - 6.10 04/19/2016 [facility] MCHC 32.9 g/dL 32.0 - 36.0 04/19/2016 [facility] RDW 12.9 % 11.5 - 14.5 04/19/2016 [facility] PT 13.6 s 12.0 - 14.7 04/19/2016 [facility] INR 1.02 0.85 - 1.17 04/19/2016 [facility] PTT 30.9 s 22.9 - 35.8 04/19/2016 [facility] RBC Morph Normal (04/18/16 7:03 PM) 04/19/2016 [facility] Monocytes # 0.7 K/CMM 0.0 - 0.8 04/19/2016 [facility] Plt Morph Normal (04/18/16 7:03 PM) 04/19/2016 [facility] Segs 54.0 % 45.0 - 75.0 04/19/2016 [facility] Eosinophils # 0.1 K/CMM 0.0 - 0.5 04/19/2016 [facility] Basophils 0.6 % 0.0 - 1.0 04/19/2016 [facility] Eosinophils 1.6 % 0.0 - 4.0 04/19/2016 [facility] Lymphocytes # 1.3 K/CMM 1.0 - 5.5 04/19/2016 [facility] Segs-Bands # 2.5 K/CMM 1.5 - 8.1 04/19/2016 [facility] Monocytes 16.1 % 2.0 - 12.0 04/19/2016 [facility] Lymphocytes 27.7 % 20.0 - 40.0 04/19/2016 [facility] Brain wo contrast CT Brain wo contrast CT Study: Brain wo contrast CT 04/18/2016 7:04 PM CDT Patient Name: AN WEIR MR: [id number] : 1930; Age: 86 years y/o Male Ordering Physician: Dima Ely MD Clinical Indication: Acute left upper extremity and facial numbness. Comparison: None TECHNIQUE: CT images were obtained from the foramen magnum to the vertex without the use of intravenous contrast on a multidetector CT. Coronal and sagittal reformatted images were prepared. 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 No evidence of acute intracranial hemorrhage, mass lesion, mass effect, midline shift, or extra-axial fluid collection. VENTRICLES: The lateral ventricles, third ventricle, fourth ventricle, and basilar cisterns are appropriate for degree of atrophy present. PARANASAL SINUSES: Small mucous retention cyst or polyp in the right maxillary sinus.. The visualized portions of the remaining paranasal sinuses are clear. MASTOIDS:Clear. ORBITS AND SOFT TISSUES:The visualized portions of the orbits are normal. SKULL: No acute fracture or suspicious osseous lesion. IMPRESSION: 1. 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 2. Chronic sinusitis as above discussed. SL: [facility]- 04/18/2016 - - Read by: Amandeep Rodriguez MD Dictated Date/time: 04/18/16 20:28 Electronically Signed by: Amandeep Rodriguez MD 04/18/16 20:31 FINAL REPORT [facility] Chest 1view DX Chest 1view DX Frontal chest x-ray. History: Chest pain Comments: The trachea is midline. The cardiomediastinal silhouette is top normal to slightly enlarged. Left chest wall pacemaker and sternotomy wires seen. No pneumonia. No pulmonary edema No pleural effusions or pneumothorax. Impression: No acute cardiopulmonary disease. 04/18/2016 - - Read by: Rosa Hunter MD Dictated Date/time: 04/18/16 19:44 Electronically Signed by: Rosa Hunter MD 04/18/16 19:45 FINAL REPORT [facility] BLOOD BANK RESULTS Eluate Int See Note 04/11/2014 2Result Comment: 04/11/2014 18:30 MIFIELDS Eluate non reactive with all cells tested. 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 The eluate prepared from the RBCs is non-reactive. Positive FUENTES may be seen in up to 16% of hospitalized patients and be idiopathic in nature. It is also associated with various autoimmune disorders, hypergammaglobulinemia, certain malignancies, and following administration of specific medications. Clinical correlation is required. RBC's with a positive FUENTES can be expected to have decreased in vivo survival.The patients electronic medical record has been reviewed for relevant information.I have reviewed the test results and concur with the resident's interpretation.CPT: [id number] 04/11/2014 [facility] CARDIAC ENZYMES CK MB 4.3 ng/mL 0.5 - 3.6 04/11/2014 [facility] CARDIAC ENZYMES CK MB Index 3.2 0.0 - 2.5 04/11/2014 [facility] CARDIAC ENZYMES Total CK 133 unit/L 12 - 191 04/11/2014 [facility] CHEM PANEL AST 26 unit/L 0 - 37 04/11/2014 [facility] CHEM PANEL Total Protein 7.2 g/dL 6.4 - 8.4 04/11/2014 [facility] CHEM PANEL Albumin Lvl 3.7 g/dL 3.5 - 5.0 04/11/2014 [facility] CHEM PANEL Alk Phos 33 unit/L 39 - 136 04/11/2014 [facility] CHEM PANEL ALT 34 unit/L 0 - 65 04/11/2014 [facility] CHEM PANEL Bili Total 1.0 mg/dL 0.2 - 1.3 04/11/2014 [facility] CHEM PANEL Bili Direct 0.2 mg/dL 0.0 - 0.3 04/11/2014 [facility] CHEM PANEL A/G Ratio 1.1 0.7 - 1.6 04/11/2014 [facility] CHEM PANEL Globulin 3.5 g/dL 2.0 - 4.0 04/11/2014 [facility] CHEM PANEL Bili Indirect 0.8 mg/dL 0.0 - 1.0 04/11/2014 [facility] CHEM PANEL Magnesium Lvl 2.0 mg/dL 1.8 - 2.4 04/11/2014 [facility] CHEM PANEL eGFR 50 mL/min/1.73m2 04/11/2014 3Result Comment: The eGFR is calculated using [...] from the National Kidney Disease Education Program (NKDEP) which additionally recommends that when the eGFR is used in patients with extremes of body mass index for purposes of drug dosing, the eGFR should be multiplied by the estimated BMI. [facility] CHEM PANEL Calcium Lvl 9.1 mg/dL 8.5 - 10.5 04/11/2014 [facility] CHEM PANEL CO2 28 meq/L 24 - 32 04/11/2014 [facility] CHEM PANEL Chloride Lvl 104 meq/L 95 - 109 04/11/2014 [facility] CHEM PANEL Potassium Lvl 4.5 meq/L 3.5 - 5.1 04/11/2014 [facility] CHEM PANEL Sodium Lvl 140 meq/L 135 - 145 04/11/2014 [facility] CHEM PANEL Creatinine Lvl 1.3 mg/dL 0.5 - 1.4 04/11/2014 [facility] CHEM PANEL BUN 23 mg/dL 7 - 22 04/11/2014 [facility] CHEM PANEL Glucose Lvl 96 mg/dL 70 - 99 04/11/2014 4Interpretive Data: Adult reference range values reflect the clinical guidelines of the [place] [employer]. [facility] CHEM PANEL AGAP 12.5 meq/L 10.0 - 20.0 04/11/2014 [facility] HEMATOLOGY Lymphocytes # 1.5 K/CMM 1.0 - 5.5 04/11/2014 [facility] HEMATOLOGY Eosinophils # 0.1 K/CMM 0.0 - 0.5 04/11/2014 [facility] HEMATOLOGY Monocytes # 0.5 K/CMM 0.0 - 0.8 04/11/2014 [facility] HEMATOLOGY Segs-Bands # 2.6 K/CMM 1.5 - 8.1 04/11/2014 [facility] HEMATOLOGY Basophils 0.8 % 0.0 - 1.0 04/11/2014 [facility] HEMATOLOGY Eosinophils 2.9 % 0.0 - 4.0 04/11/2014 [facility] HEMATOLOGY Monocytes 10.4 % 2.0 - 12.0 04/11/2014 [facility] HEMATOLOGY Lymphocytes 31.5 % 20.0 - 40.0 04/11/2014 [facility] HEMATOLOGY Segs 54.4 % 45.0 - 75.0 04/11/2014 [facility] HEMATOLOGY PTT 29.7 s 22.9 - 35.8 04/11/2014 6Interpretive Data: Heparin Therapeutic Range: 57 - 92 Seconds [facility] HEMATOLOGY PT 14.6 s 12.0 - 14.7 04/11/2014 [facility] HEMATOLOGY INR 1.13 0.85 - 1.17 04/11/2014 5Interpretive Data: RECOMMENDED RANGES FOR PROTIME INR: 2.0-3.0 for most medical and surgical thromboembolic states. 2.5-3.5 for artificial heart valves and recurrent embolism. INR SHOULD BE USED ONLY FOR PATIENTS ON STABLE ANTICOAGULANT THERAPY. [facility] HEMATOLOGY MPV 9.8 fL 7.4 - 10.4 04/11/2014 [facility] HEMATOLOGY WBC 4.8 K/CMM 3.7 - 10.4 04/11/2014 [facility] HEMATOLOGY Platelet 135 K/CMM 133 - 450 04/11/2014 [facility] HEMATOLOGY RDW 13.3 % 11.5 - 14.5 04/11/2014 [facility] HEMATOLOGY MCHC 34.5 g/dL 32.0 - 36.0 04/11/2014 [facility] HEMATOLOGY MCH 31.0 pg 27.0 - 31.0 04/11/2014 [facility] HEMATOLOGY MCV 89.7 fL 80.0 - 94.0 04/11/2014 [facility] HEMATOLOGY Hct 38.2 % 42.0 - 54.0 04/11/2014 [facility] HEMATOLOGY Hgb 13.2 g/dL 14.0 - 18.0 04/11/2014 [facility] HEMATOLOGY RBC 4.25 M/CMM 4.70 - 6.10 04/11/2014 [facility] Vital Signs Vital Sign Value Date Comments Source Respitory Rate 20 04/22/2016 [facility] Temperature Oral (F) 97.7 F 04/22/2016 [facility] Systolic (mm Hg) 118 04/22/2016 [facility] Diastolic (mm Hg) 73 04/22/2016 [facility] Respitory Rate 18 04/22/2016 [facility] Heart Rate 86 04/22/2016 [facility] Respitory Rate 14 04/22/2016 [facility] Heart Rate 64 04/22/2016 [facility] Temperature Oral (F) 97.6 F 04/22/2016 [facility] Systolic (mm Hg) 137 04/22/2016 [facility] Diastolic (mm Hg) 71 04/22/2016 [facility] BMI Calculated 27.02 04/22/2016 [facility] Weight 95.455 04/22/2016 [facility] Height 187.96 cm 04/22/2016 [facility] Height 187.96 cm 04/22/2016 [facility] Weight 95.455 04/22/2016 [facility] BMI Calculated 27.02 04/22/2016 [facility] Temperature Oral (F) 97.4 F 04/22/2016 [facility] Systolic (mm Hg) 127 04/22/2016 [facility] Diastolic (mm Hg) 74 04/22/2016 [facility] Heart Rate 80 04/22/2016 [facility] Weight 95.455 04/22/2016 [facility] Systolic (mm Hg) 108 04/19/2016 [facility] Diastolic (mm Hg) 65 04/19/2016 [facility] Temperature Oral (F) 98.1 F 04/19/2016 [facility] Heart Rate 65 04/19/2016 [facility] Systolic (mm Hg) 119 04/19/2016 [facility] Diastolic (mm Hg) 67 04/19/2016 [facility] Heart Rate 69 04/19/2016 [facility] Respitory Rate 16 04/19/2016 [facility] Temperature Oral (F) 97.5 F 04/19/2016 [facility] Systolic (mm Hg) 132 04/19/2016 [facility] Diastolic (mm Hg) 74 04/19/2016 [facility] Temperature Oral (F) 98.5 F 04/19/2016 [facility] Heart Rate 71 04/19/2016 [facility] Respitory Rate 15 04/19/2016 [facility] Respitory Rate 16 04/19/2016 [facility] Height 187.96 cm 04/19/2016 [facility] Weight 95.455 04/18/2016 [facility] Height 187.96 cm 04/18/2016 [facility] BMI Calculated 27.02 04/18/2016 [facility] Systolic (mm Hg) 122 04/12/2014 [facility] Diastolic (mm Hg) 60 04/12/2014 [facility] Systolic (mm Hg) 122 04/11/2014 [facility] Diastolic (mm Hg) 60 04/11/2014 [facility] Systolic (mm Hg) 120 04/11/2014 [facility] Diastolic (mm Hg) 58 04/11/2014 [facility] Temperature Oral (F) 97.8 F 04/11/2014 [facility] Height 187.96 cm 04/11/2014 [facility] Weight 98.636 04/11/2014 [facility] BMI Calculated 27.92 04/11/2014 [facility] Encounters Location Location Details Encounter Type Encounter Number Reason For Visit Attending Provider ADM Date DC Date Status Source [facility] Bedded Outpatient [id number] Steve Diana 04/11/2014 04/12/2014 [facility] Patients [id number] Georgina Janet 03/06/2015 03/22/2015 [facility] OP Therapy Patients [id number] Georgina Janet 03/23/2015 04/22/2015 [facility] OP [facility] Patients [id number] Georgina Janet 04/24/2015 05/24/2015 [facility] Observation [id number] Yessica Boccardo 04/18/2016 04/20/2016 [facility] Observation [id number] Yessica Boccardo 04/22/2016 04/22/2016 [facility] Procedures Procedure Code Date Perfomer Comments Source Stent placement [id number] [facility] Stent placement [id number] [facility] Automatic defibrillator procedure [id number] [facility] 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
[2018-06-07 12:30] VITALS: BP 142/85
== END 2018-06-07 12:31 | disposition home or self-care (01) ==
LOC: ER 10:38
DX: M79.652 Pain in left thigh (principal); S76.212A Strain of adductor muscle, fascia and tendon of left thigh, initial encounter; Y93.B1 Activity, exercise machines primarily for muscle strengthening; I10 Essential (primary) hypertension; I25.2 Old myocardial infarction
CPT/HCPCS: 99282